=== PATIENT | male | born 1980 | race Caucasian/White ===

== ENCOUNTER 2020-10-27 22:49 | Emergency (ER) | payer MEDICAID, OTHER ==
[~2020-10-27] VITALS: Ht 180.3 cm; Wt 127.0 kg
[2020-10-27 22:50] VITALS: BP 149/89
--- NOTE | 2020-10-27 22:50 | NUR ---
TO ER BED C/O SI WITH PLAN TO STAB SELF. DENIES HI. REQUESTING VOLUNTARY ADM TO [facility]. PT AAOX4 NO ACUTE DISTRESS NOTED, RESP EVEN AND UNLABORED, PT CALM AND COOPERATIVE AT THIS TIME. PT SEEN AND EVAL UATED BY ER MD WITH ORDERS RECEIVED. WILL CARRY OUT ORDERS.
[2020-10-27 23:55] LABS: BASOPHILS # (AUTO) 0.1 /CMM (0.0-0.2); BASOPHILS % (AUTO) 0.7 % (0.0-2.0); EOSINOPHILS % (AUTO) 1.7 % (0.0-6.0); HEMATOCRIT 45 % (39-51); HEMOGLOBIN 15.2 g/dL (13.5-17.5); LYMPHOCYTES # (AUTO) 2.6 /CMM (0.8-4.8); LYMPHOCYTES % (AUTO) 20.2 % (20.0-44.0); MEAN CORPUSCULAR HGB CONC 34 g/dl (31.0-36.0); MEAN CORPUSCULAR VOLUME 88 fL (80-96); MONOCYTES # (AUTO) 0.8 /CMM (0.1-1.30); MONOCYTES % (AUTO) 6.3 % (2.0-12.0); NEUTROPHILS # (AUTO) 9.2 /CMM (1.8-8.9); NEUTROPHILS % (AUTO) 71.1 % (43.0-81.0); PLATELET COUNT (AUTO) 441 /CMM (150-450); RED BLOOD CELL COUNT(AUTO) 5.15 MIL/uL (4.5-6.0); WHITE BLOOD COUNT (AUTO) 12.9 K/uL (4.3-11.0)
[2020-10-27 23:58] LABS: ALANINE AMINOTRANSFERASE 29 U/L (12-78); ALBUMIN 4.6 g/dL (3.4-5.0); ALCOHOL, BLOOD < 3 mg/dL (0-0); ALKALINE PHOSPHATASE 119 U/L (46-116); ASPARTATE AMINOTRANSFERASE 36 U/L (15-37); BILIRUBIN,DIRECT 0.3 mg/dL (0.0-0.2); BILIRUBIN,TOTAL 1.2 mg/dL (0.2-1.0); CALCIUM, SERUM 9.7 mg/dL (8.5-10.1); CARBON DIOXIDE 30 mmol/L (21-32); CHLORIDE 101 mmol/L (98-107); CREATININE 1.2 mg/dL (0.6-1.3); GLUCOSE 121 mg/dL (74-106); POTASSIUM 3.9 mmol/L (3.5-5.1); SODIUM SERUM 139 mmol/L (136-145); TOTAL PROTEIN, SERUM 9.3 g/dL (6.4-8.2); UREA NITROGEN, BLOOD 17 mg/dL (7-18)
[2020-10-28 00:01] LABS: ACETAMINOPHEN < 2 ug/ml (10-30)
--- NOTE | 2020-10-28 00:41 | NUR ---
URINE SAMPLE COLLECTED AND SENT TO LAB.
[2020-10-28 01:11] LABS: BILIRUBIN,URINE SMALL (NEGATIVE); COLOR,URINE YELLOW (YELLOW); LEUKOCYTE ESTERASE ,URINE NEGATIVE (NEGATIVE); NITRITE, URINE NEGATIVE (NEGATIVE); PH,URINE 5.5 (5.0-8.0); PROTEIN,URINE TRACE mg/dl (NEGATIVE); UGLUCOSE NEGATIVE (NEGATIVE)
[2020-10-28 01:44] LABS: BACTERIA,URINE Few /HPF (None Seen); MUCUS,URINE Few /LPF (None Seen); RBC,URINE 0-2 /HPF (0-2); SQUAMOUS EPITHELIAL CELL,UR Few /HPF (None Seen); WBC,URINE 0-2 /HPF (0-3)
--- NOTE | 2020-10-28 02:19 | NUR ---
Lily montague in ED - 10/28/20 at 0434 by COLLIN CLINICAL AND FACESHEET FAXED TO [facility] FOR VOLUNTARY PSYCH ADMISSION.
--- NOTE | 2020-10-28 02:19 | NUR ---
CLINICAL AND FACESHEET FAXED TO [facility] INTAKE FOR VOLUNTARY PSYCH ADMISSION.
--- NOTE | 2020-10-28 04:35 | NUR ---
CLINICAL AND FACESHEET FAXED TO [facility] INTAKE FOR VOLUNTARY PSYCH ADMISSION.
--- NOTE | 2020-10-28 08:30 | NUR ---
Called PT NOT in WR
--- NOTE | 2020-10-28 09:30 | NUR ---
Called NOT in WR
--- NOTE | 2020-10-28 10:30 | NUR ---
Multiple calls NOT in WR- Eloped
== END 2020-10-28 12:57 | disposition left against medical advice (07) ==
LOC: ER 22:49
DX: R45.851 Suicidal ideations (principal); Z20.822 Contact with and (suspected) exposure to COVID-19
CPT/HCPCS: 36415; 80048; 80076; 80143; 80307; 80320; 81001; 85025; 87426; 99285; C9803; G0480

== ENCOUNTER 2020-12-05 06:13 | Emergency (ER) | payer OTHER ==
[~2020-12-05] VITALS: Ht 180.3 cm; Wt 106.6 kg
--- NOTE | 2020-12-05 06:15 | NUR ---
PRESENTED TO THE ER FOR C/I SI PLAN TO BURN HIMSELF. PT WAS PLCED IN BED 12 ER ON CLOSE SUPERVISION OF A SITTER. GOWNED UP AND KEPT BELONGINGS IN A SAFE PLACE. SI PRECAUTION IMPLEMENTED . NEEDS MET. WILL CONT TO MONITOR ,
[2020-12-05 06:56] LABS: BILIRUBIN,URINE SMALL (NEGATIVE); COLOR,URINE YELLOW (YELLOW); LEUKOCYTE ESTERASE ,URINE Negative (NEGATIVE); NITRITE, URINE Negative (NEGATIVE); PROTEIN,URINE 30 mg/dl (NEGATIVE); UGLUCOSE Negative (NEGATIVE); UROBILINOGEN,URINE 0.2 EU/dL (0.2)
[2020-12-05] MEDS ORDERED: SILVER SULFADIAZINE CREAM 25 GM TUBE ONE (07:03)
[2020-12-05] MEDS: SILVER SULFADIAZINE CREAM 25 GM TUBE TP ONE (07:08)
[2020-12-05 07:09] LABS: BASOPHILS # (AUTO) 0.1 K/uL (0.0-0.2); BASOPHILS % (AUTO) 1.3 % (0.0-2.0); EOSINOPHILS % (AUTO) 3.4 % (0.0-6.0); HEMATOCRIT 44 % (39-51); HEMOGLOBIN 14.4 g/dL (13.5-17.5); LYMPHOCYTES # (AUTO) 1.6 K/uL (0.8-4.8); LYMPHOCYTES % (AUTO) 19.4 % (20.0-44.0); MEAN CORPUSCULAR HGB CONC 33 g/dl (31.0-36.0); MEAN CORPUSCULAR VOLUME 88 fL (80-96); MONOCYTES # (AUTO) 0.8 K/uL (0.1-1.30); MONOCYTES % (AUTO) 9.4 % (2.0-12.0); NEUTROPHILS # (AUTO) 5.5 K/uL (1.8-8.9); NEUTROPHILS % (AUTO) 66.5 % (43.0-81.0); PLATELET COUNT (AUTO) 323 K/uL (150-450); RED BLOOD CELL COUNT(AUTO) 4.95 MIL/uL (4.5-6.0); WHITE BLOOD COUNT (AUTO) 8.2 K/uL (4.3-11.0)
[2020-12-05 07:26] LABS: CALCIUM, SERUM 9.4 mg/dL (8.5-10.1); CARBON DIOXIDE 28 mmol/L (21-32); CHLORIDE 103 mmol/L (98-107); CREATININE 1.3 mg/dL (0.6-1.3); GLUCOSE 104 mg/dL (74-106); POTASSIUM 4.2 mmol/L (3.5-5.1); SODIUM SERUM 143 mmol/L (136-145); UREA NITROGEN, BLOOD 10 mg/dL (7-18)
[2020-12-05 07:34] LABS: ALANINE AMINOTRANSFERASE 33 U/L (12-78); ALBUMIN 4.4 g/dL (3.4-5.0); ALKALINE PHOSPHATASE 100 U/L (46-116); ASPARTATE AMINOTRANSFERASE 32 U/L (15-37); BILIRUBIN,DIRECT 0.1 mg/dL (0.0-0.2); BILIRUBIN,TOTAL 0.5 mg/dL (0.2-1.0); TOTAL PROTEIN, SERUM 8.5 g/dL (6.4-8.2)
[2020-12-05 07:35] LABS: RBC,URINE 0-2 /HPF (0-2); SQUAMOUS EPITHELIAL CELL,UR Rare /HPF (None Seen); WBC,URINE 0-2 /HPF (0-3)
[2020-12-05 07:36] LABS: ACETAMINOPHEN < 10 ug/ml (10-30); ALCOHOL, BLOOD < 3 mg/dL (0-0)
[2020-12-05 07:36] LABS: BACTERIA,URINE Rare /HPF (None Seen); MUCUS,URINE Moderate /LPF (None Seen)
[2020-12-05] MEDS ORDERED: OLANZAPINE 5 MG TABLET PO ONE (08:00)
[2020-12-05] MEDS ORDERED: LORAZEPAM 1 MG TABLET PO ONE (08:00)
--- NOTE | 2020-12-05 08:00 | NUR ---
THE PATIENT ALERT, VSS. DENIES ANY DISTRESS AT THIS TIME. WILL CONTINUE TO MONITOR THE PATIENT.
[2020-12-05] MEDS ORDERED: LORAZEPAM 1 MG TABLET ONE (08:10)
[2020-12-05] MEDS ORDERED: OLANZAPINE 5 MG TABLET ONE (08:10)
[2020-12-05] MEDS: OLANZAPINE 10 MG VIAL IM ONE (08:30)
[2020-12-05] MEDS: LORAZEPAM INJ 2 MG/ML VIAL IV ONE (08:30)
[2020-12-05] MEDS: diphenhydrAMINE HCL 50 MG/ML VIAL IM ONE (08:30)
[2020-12-05] MEDS: OLANZAPINE 5 MG TABLET PO ONE (08:33)
[2020-12-05] MEDS: LORAZEPAM 1 MG TABLET PO ONE (08:33)
--- NOTE | 2020-12-05 08:33 | NUR ---
PER DR MACKEY ORDER ATIVAN 2 MG PO AND ZYPREXA 10 MG PO GIVEN TO THE PATIENT.
--- NOTE | 2020-12-05 11:21 | NUR ---
The patient alert, denies any distress. Will continue to monitor the patient.
--- NOTE | 2020-12-05 11:26 | NUR ---
Processing Talc And Borate Supervisor note: student services vice president consult requested for suciidal ideation and substance use. SW attempted to interview patient at his bedside in the emergency department. Patient presented drowsy and his speech was slurred. SW will follow up at a later time.
--- NOTE | 2020-12-05 15:00 | NUR ---
Filling Separator note: SW attempted to interview patient but patient presented drowsy with slurred speech. Per Dr. Worrell, patient is sedated. SW notified Dr. Worrell that homeless resources and waiver have been placed in the chart as needed. ED senior staff accountant to follow up at a later time. SS will remain available as needed.
--- NOTE | 2020-12-06 05:44 | NUR ---
PT IS REQUESTING VOLUNTARY PSYCH ADMISSION AT [facility]. FACE SHEET AND CLINICALS WERE FAXED TO [facility]
--- NOTE | 2020-12-06 08:57 | NUR ---
Pt awake,alert, responsive and cooperative -ate breakfast 100% On Bathroom privilages. Requesting to go to [place] of [place] as voluntary "I want to go there" Dr Worrell aware Calls made by EMT Isaac jean-baptiste present case in [place]. Kanika (González at bedside) For security/safety precaution
--- NOTE | 2020-12-06 09:46 | NUR ---
CALLED ART APPLICATION TECHNICIAN FOR EVAL. ETA 1 HOUR.
--- NOTE | 2020-12-06 11:27 | NUR ---
ART TITLE MANAGER AT BEDSIDE FOR PSYCH EVAL.
[2020-12-06] MEDS ORDERED: SILV20CR13 TP (12:09)
--- NOTE | 2020-12-06 12:28 | NUR ---
PT IS MEDICALLY AND PSYCH CLEARED. AAOX3 AND VERBALLY RESPONSIVE. DENIES SI/HI. AMBULATORY W/ STEADY GAIT. WAS PROVIDED W MEAL TRAY PRIOR TO DISCHARGE. D/C IN STABLE CONDITION.
[2020-12-06 12:31] VITALS: BP 125/60
== END 2020-12-06 12:32 | disposition home or self-care (01) ==
LOC: ER 06:13
DX: R45.851 Suicidal ideations (principal); T21.22XA Burn of second degree of abdominal wall, initial encounter; T31.0 Burns involving less than 10% of body surface; X76.XXXA Intentional self-harm by smoke, fire and flames, initial encounter; Y92.89 Other specified places as the place of occurrence of the external cause; Z59.0 Homelessness; F19.10 Other psychoactive substance abuse, uncomplicated; Z20.822 Contact with and (suspected) exposure to COVID-19
CPT/HCPCS: 36415; 80048; 80076; 80143; 80307; 80320; 81001; 85025; 87426; 99285; C9803; G0480

== ENCOUNTER 2021-01-04 00:14 | Emergency (ER) | payer OTHER ==
[~2021-01-04] VITALS: Ht 180.3 cm; Wt 95.3 kg
[~2021-01-04 00:14] MED LIST: SILV20CR13 TP
[2021-01-04 00:27] VITALS: BP 132/72
[2021-01-04] MEDS ORDERED: IBUP-1957 PO (00:35)
[2021-01-04] MEDS ORDERED: IBUPROFEN 400 MG TABLET ONE (00:38)
--- NOTE | 2021-01-04 00:44 | NUR ---
Patient discharged to home in stable condition. pt refused rx and Written after care instructions.
[2021-01-04] MEDS ORDERED: IBUPROFEN 400 MG TABLET PO ONE (01:00)
== END 2021-01-04 00:46 | disposition home or self-care (01) ==
LOC: ER 00:19
DX: G89.29 Other chronic pain (principal); M25.572 Pain in left ankle and joints of left foot; F10.10 Alcohol abuse, uncomplicated; Y90.9 Presence of alcohol in blood, level not specified; Z59.0 Homelessness; Z79.899 Other long term (current) drug therapy

== ENCOUNTER 2021-01-04 05:44 | Emergency (ER) | payer OTHER ==
[~2021-01-04] VITALS: Ht 180.3 cm; Wt 99.8 kg
[~2021-01-04 05:44] MED LIST changes: +IBUP-1957 PO
[2021-01-04 06:13] VITALS: BP 135/69
--- NOTE | 2021-01-04 06:26 | NUR ---
PT VERBALIZED HE IS NO LONGER SUICIDAL AND DOES NOT WANT TO GO PSYCH HOSPITAL ANY MORE. DENIED SI/HI AND LEFT THE HOSPITAL. MADE AWARE
[2021-01-04 06:32] LABS: BASOPHILS # (AUTO) 0.1 K/uL (0.0-0.2); EOSINOPHILS % (AUTO) 4.6 % (0.0-6.0); HEMATOCRIT 46 % (39-51); LYMPHOCYTES # (AUTO) 3.4 K/uL (0.8-4.8); LYMPHOCYTES % (AUTO) 32.3 % (20.0-44.0); MEAN CORPUSCULAR HGB CONC 34 g/dl (31.0-36.0); MEAN CORPUSCULAR VOLUME 89 fL (80-96); MONOCYTES # (AUTO) 1.1 K/uL (0.1-1.30); MONOCYTES % (AUTO) 10.1 % (2.0-12.0); NEUTROPHILS # (AUTO) 5.5 K/uL (1.8-8.9); PLATELET COUNT (AUTO) 315 K/uL (150-450); RED BLOOD CELL COUNT(AUTO) 5.24 MIL/uL (4.5-6.0); WHITE BLOOD COUNT (AUTO) 10.7 K/uL (4.3-11.0)
--- NOTE | 2021-01-04 06:35 | NUR ---
PT DENIES SI AND HI. REQUESTED TO LEAVE. ER MD AWARE. PT LEFT ED. VSS. AMBULATED WITH STEADY GAIT.
[2021-01-04 06:36] LABS: BILIRUBIN,URINE SMALL (NEGATIVE); COLOR,URINE DARK YELLOW (YELLOW); LEUKOCYTE ESTERASE ,URINE NEGATIVE (NEGATIVE); NITRITE, URINE NEGATIVE (NEGATIVE); PH,URINE 5.5 (5.0-8.0); PROTEIN,URINE 30 mg/dl (NEGATIVE); UGLUCOSE NEGATIVE (NEGATIVE)
[2021-01-04 06:52] LABS: ALANINE AMINOTRANSFERASE 54 U/L (12-78); ALBUMIN 4.4 g/dL (3.4-5.0); ALKALINE PHOSPHATASE 127 U/L (46-116); ASPARTATE AMINOTRANSFERASE 91 U/L (15-37); BILIRUBIN,DIRECT 0.2 mg/dL (0.0-0.2); BILIRUBIN,TOTAL 0.5 mg/dL (0.2-1.0); CALCIUM, SERUM 9.3 mg/dL (8.5-10.1); CARBON DIOXIDE 25 mmol/L (21-32); CHLORIDE 100 mmol/L (98-107); CREATININE 1.3 mg/dL (0.6-1.3); GLUCOSE 115 mg/dL (74-106); POTASSIUM 3.8 mmol/L (3.5-5.1); SODIUM SERUM 138 mmol/L (136-145); TOTAL PROTEIN, SERUM 8.7 g/dL (6.4-8.2); UREA NITROGEN, BLOOD 20 mg/dL (7-18)
[2021-01-04 06:55] LABS: ACETAMINOPHEN < 10 ug/ml (10-30)
[2021-01-04 06:56] LABS: ALCOHOL, BLOOD < 3 mg/dL (0-0)
[2021-01-04 08:14] LABS: BACTERIA,URINE Few /HPF (None Seen); CALCIUM OXALATE CRYSTALS,UR Few /HPF (None Seen); RBC,URINE 0-2 /HPF (0-2); WBC,URINE 0-3 /HPF (0-3)
[2021-01-04 08:15] LABS: SQUAMOUS EPITHELIAL CELL,UR Few /HPF (None Seen)
[2021-01-04 08:16] LABS: URINE AMORPHOUS URATE Moderate /HPF (None Seen)
== END 2021-01-04 06:37 | disposition home or self-care (01) ==
LOC: ER 05:48
DX: R45.851 Suicidal ideations (principal); R44.0 Auditory hallucinations; F19.10 Other psychoactive substance abuse, uncomplicated; F15.10 Other stimulant abuse, uncomplicated; F12.10 Cannabis abuse, uncomplicated; Z59.0 Homelessness; R74.01 Elevation of levels of liver transaminase levels; Z20.822 Contact with and (suspected) exposure to COVID-19
CPT/HCPCS: 36415; 80048; 80076; 80143; 80307; 80320; 81001; 85025; 87426; 99285; C9803; G0480

== ENCOUNTER 2021-01-06 16:08 | Emergency (ER) | payer OTHER ==
[~2021-01-06] VITALS: Ht 180.3 cm; Wt 106.6 kg
--- NOTE | 2021-01-06 16:38 | NUR ---
Xray in progress at BS.
[2021-01-06] MEDS ORDERED: IBUPROFEN 600 MG TABLET ONE (16:41)
[2021-01-06] MEDS ORDERED: IBUPROFEN 600 MG TABLET PO ONE (17:00)
[2021-01-06] MEDS ORDERED: IBUP-1957 PO (17:47)
--- NOTE | 2021-01-06 18:36 | NUR ---
Patient removed the short posterior splint. KAILYN Abreu made aware.
[2021-01-06 18:37] VITALS: BP 148/88
--- NOTE | 2021-01-06 18:38 | NUR ---
Patient discharged to home in stable condition. Written and verbal after care instructions given. Patient verbalizes understanding of instruction.
== END 2021-01-06 18:38 | disposition home or self-care (01) ==
LOC: ER 16:16
DX: S82.892A Other fracture of left lower leg, initial encounter for closed fracture (principal); F17.200 Nicotine dependence, unspecified, uncomplicated; Z59.0 Homelessness; W19.XXXA Unspecified fall, initial encounter; Y93.89 Activity, other specified; Y92.89 Other specified places as the place of occurrence of the external cause; Y99.8 Other external cause status
CPT/HCPCS: 73610-TC

== ENCOUNTER 2021-02-28 06:45 | Emergency (ER) | payer OTHER ==
[~2021-02-28] VITALS: Ht 180.3 cm; Wt 107.5 kg
--- NOTE | 2021-02-28 06:45 | NUR ---
called for triage not in waiting room.
--- NOTE | 2021-02-28 06:58 | NUR ---
called for triage, not in waiting room.
--- NOTE | 2021-02-28 07:37 | NUR ---
urine collected and sent to lab.
--- NOTE | 2021-02-28 07:38 | NUR ---
patient came in to the er +SI "I want to run through traffic". On room air, security at bedside for wanding. Sitter at bedside for constant monitoring. Kept comfortable, will continue to monitor accordingly.
[2021-02-28] MEDS ORDERED: LORAZEPAM 1 MG TABLET ONE (07:55)
[2021-02-28] MEDS ORDERED: OLANZAPINE 5 MG TABLET ONE (07:56)
[2021-02-28] MEDS ORDERED: LORAZEPAM 1 MG TABLET PO ONE (08:00)
[2021-02-28] MEDS ORDERED: OLANZAPINE 5 MG TABLET PO ONE (08:00)
[2021-02-28 08:22] LABS: BILIRUBIN,URINE MODERATE (NEGATIVE); COLOR,URINE DARK YELLOW (YELLOW); LEUKOCYTE ESTERASE ,URINE Negative (NEGATIVE); NITRITE, URINE Negative (NEGATIVE); PH,URINE 5.5 (5.0-8.0); PROTEIN,URINE 30 mg/dl (NEGATIVE); UGLUCOSE Negative (NEGATIVE)
[2021-02-28 08:46] LABS: BACTERIA,URINE Few /HPF (None Seen); MUCUS,URINE Moderate /LPF (None Seen); RBC,URINE NONE SEEN /HPF (0-2); SQUAMOUS EPITHELIAL CELL,UR Rare /HPF (None Seen); WBC,URINE 0-3 /HPF (0-3)
[2021-02-28 08:56] LABS: BASOPHILS % (AUTO) 0.4 % (0.0-2.0); HEMATOCRIT 43 % (39-51); HEMOGLOBIN 14.1 g/dL (13.5-17.5); LYMPHOCYTES # (AUTO) 1.3 K/uL (0.8-4.8); LYMPHOCYTES % (AUTO) 12.7 % (20.0-44.0); MEAN CORPUSCULAR HGB CONC 33 g/dl (31.0-36.0); MEAN CORPUSCULAR VOLUME 90 fL (80-96); MONOCYTES # (AUTO) 0.6 K/uL (0.1-1.30); MONOCYTES % (AUTO) 6.5 % (2.0-12.0); NEUTROPHILS # (AUTO) 7.8 K/uL (1.8-8.9); NEUTROPHILS % (AUTO) 78.4 % (43.0-81.0); PLATELET COUNT (AUTO) 301 K/uL (150-450); RED BLOOD CELL COUNT(AUTO) 4.77 MIL/uL (4.5-6.0)
[2021-02-28 09:13] LABS: CALCIUM, SERUM 9.2 mg/dL (8.5-10.1); CARBON DIOXIDE 19 mmol/L (21-32); CHLORIDE 101 mmol/L (98-107); CREATININE 1.6 mg/dL (0.6-1.3); GLUCOSE 121 mg/dL (74-106); POTASSIUM 3.1 mmol/L (3.5-5.1); SODIUM SERUM 142 mmol/L (136-145); UREA NITROGEN, BLOOD 18 mg/dL (7-18)
[2021-02-28 09:27] LABS: ALANINE AMINOTRANSFERASE 88 U/L (12-78); ALBUMIN 4.1 g/dL (3.4-5.0); ALKALINE PHOSPHATASE 86 U/L (46-116); ASPARTATE AMINOTRANSFERASE 184 U/L (15-37); BILIRUBIN,DIRECT 0.2 mg/dL (0.0-0.2); BILIRUBIN,TOTAL 0.6 mg/dL (0.2-1.0); TOTAL PROTEIN, SERUM 7.9 g/dL (6.4-8.2)
[2021-02-28 09:28] LABS: ACETAMINOPHEN 0 ug/ml (10-30); ALCOHOL, BLOOD < 3 mg/dL (0-0)
[2021-02-28] MEDS ORDERED: POTASSIUM CHLORIDE 20 MEQ TAB.PRT.SR PO ONE ×2 (09:30→12:56)
--- NOTE | 2021-02-28 12:25 | NUR ---
SS Consult: SS consult requested for SI with plan to "run into traffic". EFRA met with pt. bedside. Pt. is sleeping and not rousable toverbal cues. Pt. was give Zyprexa and Ativan earlier today per EMR. Per Tox reprt pt. used Amphetamine and used Cannabinoids. Pt. appears disheveled and mal odorouse, possible homelessness. SW placed homeless resources and waiver in the pt.'s chart to be completed at later time. Plan: EFRA faxed clinicals to [facility] [[address] [place] [address] FAX:[phone]] for inpatient psychiatric treatment. Patient signed homeless waiver & it was placed in the pt.'s chart. EFRA provided pt. with homeless resources and he accepted them:
--- NOTE | 2021-02-28 12:54 | NUR ---
RECEIVED A CALL FROM CLAUDIA KRAUS. [facility] UNDER THE CARE OF DR RAMESH. PLEASE TRANSPORT THE PATIENT AT 1330. PLEASE GIVE REPORT TO DISPATCHER RADIO AT [phone].
--- NOTE | 2021-02-28 13:31 | NUR ---
REPORT GIVEN TO NURSE PATSY FROM [facility].
--- NOTE | 2021-02-28 14:54 | NUR ---
CALLED [facility] FOR TRANSPORT TO [facility]. ETA 1 HOUR.
[2021-02-28 16:50] VITALS: BP 126/76
--- NOTE | 2021-02-28 16:50 | NUR ---
THE PATIENT IS TRANSFERED TO [facility] IN STABLE CONDITON VIA ARRANGED TRANSPO.
== END 2021-02-28 16:51 ==
LOC: ER 06:54
DX: R45.851 Suicidal ideations (principal); F15.10 Other stimulant abuse, uncomplicated; E87.6 Hypokalemia; Z20.822 Contact with and (suspected) exposure to COVID-19; E66.9 Obesity, unspecified; Z68.33 Body mass index [BMI] 33.0-33.9, adult; Z59.00 Homelessness unspecified
CPT/HCPCS: 36415; 80048; 80076; 80143; 80307; 80320; 81001; 85025; 87426; 99285; A6403; C9803; G0480

== ENCOUNTER 2021-03-25 05:41 | Emergency (ER) | payer OTHER ==
[~2021-03-25] VITALS: Ht 180.3 cm; Wt 106.6 kg
--- NOTE | 2021-03-25 06:00 | NUR ---
DAYNASEGATO C/O SI WITH PLAN TO CUT WRIST. -HI REQUESTING VOL. ADMISSION TO [facility]. PT AMBULATORY WITH NON LABORED BREATHING.
[2021-03-25 06:39] LABS: BASOPHILS # (AUTO) 0.1 K/uL (0.0-0.2); EOSINOPHILS % (AUTO) 3.3 % (0.0-6.0); HEMATOCRIT 44 % (39-51); HEMOGLOBIN 14.8 g/dL (13.5-17.5); LYMPHOCYTES # (AUTO) 3.2 K/uL (0.8-4.8); LYMPHOCYTES % (AUTO) 27.1 % (20.0-44.0); MEAN CORPUSCULAR HGB CONC 34 g/dl (31.0-36.0); MEAN CORPUSCULAR VOLUME 90 fL (80-96); MONOCYTES # (AUTO) 1.1 K/uL (0.1-1.30); MONOCYTES % (AUTO) 9.3 % (2.0-12.0); NEUTROPHILS % (AUTO) 59.3 % (43.0-81.0); PLATELET COUNT (AUTO) 365 K/uL (150-450); WHITE BLOOD COUNT (AUTO) 11.7 K/uL (4.3-11.0)
[2021-03-25 06:55] LABS: ALCOHOL, BLOOD < 3 mg/dL (0-0); ALKALINE PHOSPHATASE 143 U/L (46-116); ASPARTATE AMINOTRANSFERASE 33 U/L (15-37); BILIRUBIN,DIRECT 0.1 mg/dL (0.0-0.2); BILIRUBIN,TOTAL 0.3 mg/dL (0.2-1.0); CALCIUM, SERUM 8.6 mg/dL (8.5-10.1); CARBON DIOXIDE 31 mmol/L (21-32); CHLORIDE 101 mmol/L (98-107); GLUCOSE 119 mg/dL (74-106); POTASSIUM 3.5 mmol/L (3.5-5.1); SODIUM SERUM 140 mmol/L (136-145); TOTAL PROTEIN, SERUM 7.8 g/dL (6.4-8.2); UREA NITROGEN, BLOOD 10 mg/dL (7-18)
[2021-03-25 07:16] LABS: ACETAMINOPHEN < 2 ug/ml (10-30)
[2021-03-25 07:24] LABS: BILIRUBIN,URINE NEGATIVE (NEGATIVE); COLOR,URINE YELLOW (YELLOW); LEUKOCYTE ESTERASE ,URINE NEGATIVE (NEGATIVE); NITRITE, URINE NEGATIVE (NEGATIVE); PROTEIN,URINE NEGATIVE (NEGATIVE); UGLUCOSE NEGATIVE (NEGATIVE)
[2021-03-25 07:29] LABS: ALANINE AMINOTRANSFERASE 38 U/L (12-78)
[2021-03-25 07:49] LABS: CALCIUM OXALATE CRYSTALS,UR Many /HPF (None Seen); RBC,URINE 0-2 /HPF (0-2); SQUAMOUS EPITHELIAL CELL,UR None Seen /HPF (None Seen); WBC,URINE 0-2 /HPF (0-3)
[2021-03-25 07:50] LABS: BACTERIA,URINE Rare /HPF (None Seen)
--- NOTE | 2021-03-25 11:24 | NUR ---
EFRA faxed clinical paperwork to [facility].
--- NOTE | 2021-03-25 11:44 | NUR ---
"SS Consult: SS consults for SI. Pt. Is a 40-year-old male. Pt. demonstrates adequate insight to the reason for hospitalization. Per pt., he/she was brought to hospital by self-due to suicidal thoughts. Pt. was oriented x2. During interview, pt. was capable of following directions but did not make appropriate eye-contact. Pt. seemed uncomfortable. SW explored pt.s Hx of mental health and substance abuse. Per pt., he has no Hx of mental health, substance abuse denied AH/VH, paranoia or delusions. Pt. have thoughts of SI. Per pt., the methods he used to hurt himself is cutting. Pt. did not want to answer further questions regarding SI. EFRA explored pt.s living situation. Per pt., he has been homeless for 5 years [no current address, living in the streets]. Per pt., he reported that the hospital is his home. Per pt., he reports having no support or family. SW explored pt.s financial status. Per pt., he/she is currently not working or have financial support. Pt. reported that he wants a referral to [facility]. SW faxed clinical paperwork to [facility]. Plan: SW provided available resources and pt. accepted. EFRA made a referral to [facility]. Resources Provided: Year-round shelters: [place] [address] [place], [place] [id number] ; [place] [facility] [place] [address] [place] [address]; [place] [facility] [address] [place] [address] Winter Shelters: Torin Doan Provider: [facility] [place] Address: [address] [facility] [facility] [place], [address] # of Beds: 47 Population Served: [facility] 6 | [facility] Jayleen La [place] Provider: [facility] Address: [address], # of Beds: 66 Population Served: [facility] [place] Provider: First to Serve Address: [address] [facility], [address] # of Beds: 56 Population Served: [place] Provider: /[facility] Address: [address] [facility], [address] # of Beds: 49 Population Served: [place] SPA 8 | [place] Provider: First to Serve Address: [address], [address] # of Beds: 37 Population Served: Co[facility] Hygiene: [facility] [facility]: [address] [place] ; [place] [facility] [address] [facility] [place] ; [facility] [address] [place] . Food Resources: [place] [facility] at [facility]- [address] [facility]; Meet Each Need with Dignity ([facility]) [address] [facility] Center[facility]ina [place]; [facility] Food [facility]ry [address] [facility]; [facility] [address] [facility]. Mental Health resources provided: [facility] [address] [place], [place] [phone] ; [facility] [address] [facility] [address], [place], [place] [phone] ; [place] Jad [facility] [address], [place] [phone] ; [place] [facility] [address] [place], [place] [phone] Healthcare Clinics: [facility] [address] [facility], [address] [place]. [place] ; [facility] [address] [place] [address]; [facility] [address] [facility]. [place] [phone] Counseling--Outpatient [facility] [address], [address] [place], [place] [address] (Specializes in in-depth psychotherapy for emotional distress: anxiety, depression, interpersonal conflicts, life transitions, childhood abuse) [facility] [address] [place] [address] (Assist with solving problem marital difficulties, separation & divorce, aging parents, & grief, chronic & terminal illness) [facility] [address] [place] [address] (Deal with loss & grief, anxiety, marital difficulties) Homebound/Mental Health Services [address] [facility] [place] [address] (Provide in-home mental services to people who are incapable of leaving their homes) Organization for Needs of the Elderly Senior Service/Resource Center [address] L[place], [place] [phone] [facility] [address] [place], [place] [address] PSYCHIATRIC OUTPATIENT SERVICES [facility] Partial Hospitalization and Intensive Outpatient Program (Managed Care and [place] Only)[address] [facility] [phone] [facility] Partial Hospitalization and Outpatient [id number] [facility]. [address] [place], [place] [phone] Critical access hospital Mental Health [place] [id number] Cristina [facility] [address] [place], [place] [phone] [facility] Partial Hospitalization and Outpatient Ibkawkw05218 [place], [phone] Substance Abuse resources provided included: [facility] Substance Abuse Self-Helpline ([facility]) ; CRI -HELP [address] [address] [facility]. [place] [address] ; [facility] [address] [facility] [address] ; [facility] Rehabilitation Program [address] Sun[address]water [facility] [address] ; [facility] [address] [facility] [address] ; [facility] [address] Fritz [facility] [address] ; [facility] [address] [facility] [place] [phone] ; [facility] Substance Abuse Helpline([facility] ; [facility] ; [facility] [place]; [facility] [place]; Cri-Help [place]; I-ADARP Inter [place] [facility] Mickey Fritz; [facility] [place]; [facility] [place]; [facility]; [facility], [facility]. [place]; Alcoholics Anonymous -SFV; Ying ; Marijuana Anonymous -SFV; Narcotics Anonymous www.na.org;"
--- NOTE | 2021-03-25 12:51 | NUR ---
RECEIVED A CALL FROM . PT ACCEPTED TO [facility]. ACCEPTING IS DR. NEWMAN. PLEASE CALL REPORT AFTER 1300 to [phone].
--- NOTE | 2021-03-25 12:54 | NUR ---
CALLED [facility] FOR TRANSPORT TO [facility]. ETA 75-90 MINUTES.
[2021-03-25 14:00] VITALS: BP 122/75
--- NOTE | 2021-03-25 14:23 | NUR ---
report given to radha fuentes frederick.
--- NOTE | 2021-03-25 16:00 | NUR ---
patient picked up by private ambulance going to [facility] in no distress.
== END 2021-03-25 18:53 ==
LOC: ER 05:44
DX: R45.851 Suicidal ideations (principal); F15.10 Other stimulant abuse, uncomplicated; Z20.822 Contact with and (suspected) exposure to COVID-19; Z59.02 Unsheltered homelessness
CPT/HCPCS: 36415; 80048; 80076; 80143; 80307; 80320; 81001; 85025; 87426; 99285; C9803; G0480

== ENCOUNTER 2021-04-14 00:07 | Emergency (ER) | payer OTHER ==
[~2021-04-14] VITALS: Ht 180.3 cm; Wt 106.6 kg
--- NOTE | 2021-04-14 01:00 | NUR ---
CALLED PT TO TRIAGE. PT -SI. ASKED PT IF WANTS TO BE SEEN BY MD, PT STATED NOT RIGHT NOW.
--- NOTE | 2021-04-14 03:00 | NUR ---
URINE COLLECTED SENT TO LAB
[2021-04-14 03:27] LABS: BASOPHILS # (AUTO) 0.1 K/uL (0.0-0.2); BASOPHILS % (AUTO) 0.9 % (0.0-2.0); EOSINOPHILS % (AUTO) 2.8 % (0.0-6.0); HEMATOCRIT 45 % (39-51); LYMPHOCYTES # (AUTO) 2.2 K/uL (0.8-4.8); LYMPHOCYTES % (AUTO) 18.6 % (20.0-44.0); MEAN CORPUSCULAR HGB CONC 33 g/dl (31.0-36.0); MEAN CORPUSCULAR VOLUME 90 fL (80-96); MONOCYTES % (AUTO) 8.4 % (2.0-12.0); NEUTROPHILS # (AUTO) 8.2 K/uL (1.8-8.9); NEUTROPHILS % (AUTO) 69.3 % (43.0-81.0); PLATELET COUNT (AUTO) 344 K/uL (150-450); RED BLOOD CELL COUNT(AUTO) 4.99 MIL/uL (4.5-6.0); WHITE BLOOD COUNT (AUTO) 11.8 K/uL (4.3-11.0)
[2021-04-14 03:37] LABS: CALCIUM, SERUM 9.4 mg/dL (8.5-10.1); CARBON DIOXIDE 30 mmol/L (21-32); CHLORIDE 100 mmol/L (98-107); CREATININE 1.4 mg/dL (0.6-1.3); GLUCOSE 116 mg/dL (74-106); POTASSIUM 4.2 mmol/L (3.5-5.1); SODIUM SERUM 142 mmol/L (136-145); UREA NITROGEN, BLOOD 21 mg/dL (7-18)
[2021-04-14 03:42] LABS: ALANINE AMINOTRANSFERASE 35 U/L (12-78); ALBUMIN 4.8 g/dL (3.4-5.0); ALCOHOL, BLOOD < 3 mg/dL (0-0); ALKALINE PHOSPHATASE 91 U/L (46-116); ASPARTATE AMINOTRANSFERASE 24 U/L (15-37); BILIRUBIN,DIRECT 0.1 mg/dL (0.0-0.2); BILIRUBIN,TOTAL 0.5 mg/dL (0.2-1.0); TOTAL PROTEIN, SERUM 8.9 g/dL (6.4-8.2)
[2021-04-14 03:43] LABS: ACETAMINOPHEN 0 ug/ml (10-30)
[2021-04-14 05:08] LABS: BILIRUBIN,URINE NEGATIVE (NEGATIVE); COLOR,URINE YELLOW (YELLOW); LEUKOCYTE ESTERASE ,URINE NEGATIVE (NEGATIVE); NITRITE, URINE NEGATIVE (NEGATIVE); PH,URINE 5.5 (5.0-8.0); PROTEIN,URINE NEGATIVE (NEGATIVE); UGLUCOSE NEGATIVE (NEGATIVE); UROBILINOGEN,URINE 0.2 EU/dL (0.2)
--- NOTE | 2021-04-14 06:25 | NUR ---
CLINICAL SENT TO [facility] INTAKE
--- NOTE | 2021-04-14 07:55 | NUR ---
THE PATIENT IS RECEIVED IN ER BED #13. ALERT AND ORIENTED X3. DENIES PAIN. IN ROOM AIR AND DENIES SOB. RESPIRATION REGULAR AND UNLABORED. WILL CONTINUE TO MONITOR THE PATIENT.
--- NOTE | 2021-04-14 08:15 | NUR ---
THE PATIENT REFUSES BREAKFAST AND WANTS TO SLEEP. THE PATIENT`S WISHES ARE RESPECTED.
--- NOTE | 2021-04-14 12:10 | NUR ---
THE PATIENT IS SERVED WITH LUNCH. TOLERATES PROVIDED FOOD WELL.
--- NOTE | 2021-04-14 14:17 | NUR ---
CALLED [facility] FOR TRANSPORT TO COUNTS INCLUDE 234 BEDS AT THE [facility]. ETA 60-75 MINUTES.
[2021-04-14 16:30] VITALS: BP 126/73
--- NOTE | 2021-04-14 16:30 | NUR ---
REPORT GIVEN TO EMS FOR PT TRANSFER TO [facility].
== END 2021-04-14 16:31 ==
LOC: ER 00:07
DX: R45.851 Suicidal ideations (principal); F20.9 Schizophrenia, unspecified; F31.9 Bipolar disorder, unspecified; Z20.822 Contact with and (suspected) exposure to COVID-19; Z59.02 Unsheltered homelessness
CPT/HCPCS: 36415; 80048; 80076; 80143; 80307; 80320; 81003; 85025; 87426; 99285; C9803; G0480

== ENCOUNTER 2021-05-04 01:47 | Emergency (ER) | payer OTHER ==
[~2021-05-04] VITALS: Ht 182.9 cm; Wt 106.6 kg
[2021-05-04 03:49] LABS: BASOPHILS # (AUTO) 0.1 K/uL (0.0-0.2); BASOPHILS % (AUTO) 0.8 % (0.0-2.0); EOSINOPHILS % (AUTO) 2.6 % (0.0-6.0); HEMATOCRIT 44 % (39-51); HEMOGLOBIN 14.9 g/dL (13.5-17.5); LYMPHOCYTES # (AUTO) 2.2 K/uL (0.8-4.8); LYMPHOCYTES % (AUTO) 22.5 % (20.0-44.0); MEAN CORPUSCULAR HGB CONC 34 g/dl (31.0-36.0); MEAN CORPUSCULAR VOLUME 90 fL (80-96); MONOCYTES # (AUTO) 0.9 K/uL (0.1-1.30); MONOCYTES % (AUTO) 9.1 % (2.0-12.0); NEUTROPHILS # (AUTO) 6.4 K/uL (1.8-8.9); PLATELET COUNT (AUTO) 342 K/uL (150-450); RED BLOOD CELL COUNT(AUTO) 4.95 MIL/uL (4.5-6.0); WHITE BLOOD COUNT (AUTO) 9.9 K/uL (4.3-11.0)
[2021-05-04 03:54] LABS: ALANINE AMINOTRANSFERASE 42 U/L (12-78); ALBUMIN 4.7 g/dL (3.4-5.0); ALCOHOL, BLOOD < 3 mg/dL (0-0); ALKALINE PHOSPHATASE 93 U/L (46-116); ASPARTATE AMINOTRANSFERASE 88 U/L (15-37); BILIRUBIN,DIRECT 0.2 mg/dL (0.0-0.2); BILIRUBIN,TOTAL 0.8 mg/dL (0.2-1.0); CALCIUM, SERUM 9.1 mg/dL (8.5-10.1); CARBON DIOXIDE 26 mmol/L (21-32); CHLORIDE 101 mmol/L (98-107); CREATININE 1.3 mg/dL (0.6-1.3); GLUCOSE 120 mg/dL (74-106); POTASSIUM 3.7 mmol/L (3.5-5.1); SODIUM SERUM 138 mmol/L (136-145); TOTAL PROTEIN, SERUM 8.7 g/dL (6.4-8.2); UREA NITROGEN, BLOOD 22 mg/dL (7-18)
[2021-05-04 04:00] LABS: BILIRUBIN,URINE SMALL (NEGATIVE); COLOR,URINE YELLOW (YELLOW); LEUKOCYTE ESTERASE ,URINE NEGATIVE (NEGATIVE); NITRITE, URINE NEGATIVE (NEGATIVE); PH,URINE 5.5 (5.0-8.0); PROTEIN,URINE TRACE mg/dl (NEGATIVE); UGLUCOSE NEGATIVE (NEGATIVE); UROBILINOGEN,URINE 0.2 EU/dL (0.2)
[2021-05-04 04:01] LABS: ACETAMINOPHEN 0 ug/ml (10-30)
--- NOTE | 2021-05-04 05:59 | NUR ---
FACESHEET AND CLINICALS FAXED TO [facility].
--- NOTE | 2021-05-04 07:10 | NUR ---
ASSESSED PT ON BED AWAKE AND ALERT, NOT IN RESPIRATORY DISTRESS, V/S STABLE, KEPT RESTED AND COMFORTABLE. WILL CONTINUE TO MONITOR. AWAITING [facility] INTAKE FOR UPDATE.
--- NOTE | 2021-05-04 16:05 | NUR ---
[facility] under Dr. Hermosillo/Dr. linares report given to Kiarra KRISHNAN (warehouse foreman).
--- NOTE | 2021-05-04 16:08 | NUR ---
CALLED [facility] ETA [phone]
--- NOTE | 2021-05-04 17:40 | NUR ---
JANINE PITTMAN TO NURSE JOHNSTON FROM [facility]
--- NOTE | 2021-05-04 17:40 | NUR ---
REPORT TOYA TO [facility] STAFF
--- NOTE | 2021-05-04 18:06 | NUR ---
pt refused to be transfered to [facility].
--- NOTE | 2021-05-04 18:40 | NUR ---
MON[facility] spoke to [facility] 1 hr.
--- NOTE | 2021-05-04 19:50 | NUR ---
[facility] AT BEDSIDE FOR TRANSPORT TO [facility]
--- NOTE | 2021-05-04 20:15 | NUR ---
PT REFUSED TO BE TRANSPORTED TO [facility].
--- NOTE | 2021-05-04 21:30 | NUR ---
Patient is resting comfortably in bed with eyes closed. Easily aroused. VSS
[2021-05-04] MEDS ORDERED: HALOPERIDOL LACTATE INJ 5 MG/ML VIAL ONE (21:49)
[2021-05-04] MEDS ORDERED: LORAZEPAM INJ 2 MG/ML VIAL ONE (21:49)
[2021-05-04] MEDS ORDERED: diphenhydrAMINE HCL 50 MG/ML VIAL ONE (21:49)
[2021-05-04] MEDS ORDERED: LORAZEPAM INJ 2 MG/ML VIAL IM ONE (22:00)
[2021-05-04] MEDS ORDERED: HALOPERIDOL LACTATE INJ 5 MG/ML VIAL IM ONE (22:00)
[2021-05-04] MEDS ORDERED: diphenhydrAMINE HCL 50 MG/ML VIAL IM ONE (22:00)
--- NOTE | 2021-05-05 01:40 | NUR ---
PT SLEEPING, ATTACHED TO MONITOR AND POX.
--- NOTE | 2021-05-05 04:42 | NUR ---
Patient is resting comfortably in bed with eyes closed. Easily aroused. VSS
--- NOTE | 2021-05-05 08:08 | NUR ---
THE PATIENT IS RECEIVED IN ER BED #15. SLEEPING, EASILY RESPONSIVE TO VERBAL STIMULI. RESPIRATION REGULAR AND UNLABORED. WILL CONTINUE TO MONITOR THE PATIENT.
--- NOTE | 2021-05-05 08:10 | NUR ---
PT IS VERY AGGRESSIVE TOWARDS STAFF. AWARE.
[2021-05-05] MEDS ORDERED: diphenhydrAMINE HCL 50 MG/ML VIAL ONE (08:54)
[2021-05-05] MEDS ORDERED: HALOPERIDOL LACTATE INJ 5 MG/ML VIAL ONE (08:55)
[2021-05-05] MEDS ORDERED: LORAZEPAM INJ 2 MG/ML VIAL ONE (08:55)
[2021-05-05] MEDS ORDERED: HALOPERIDOL LACTATE INJ 5 MG/ML VIAL IM ONE (09:00)
[2021-05-05] MEDS ORDERED: diphenhydrAMINE HCL 50 MG/ML VIAL IM ONE (09:00)
[2021-05-05] MEDS ORDERED: LORAZEPAM INJ 2 MG/ML VIAL IM ONE (09:00)
--- NOTE | 2021-05-05 11:00 | NUR ---
PINKY (PSYCH CLINICIAN) AT THE BEDSIDE
--- NOTE | 2021-05-05 21:15 | NUR ---
LARON - CRISIS TEAM AT BEDSIDE FOR EVAL.
--- NOTE | 2021-05-06 06:04 | NUR ---
PT AWAKE IN BED, PROVIDED WITH WATER.
--- NOTE | 2021-05-06 10:13 | NUR ---
SS Consult: Pt. Is a 40-year-old male. Pt. demonstrates adequate insight to the reason for hospitalization. Pt. was oriented x2 and cooperative. During interview, pt. was capable of following directions, and appeared unkempt. Evidenced by: bad hygiene. Pt.'s speech was at a low rate. EFRA explored pt.'s Hx of mental health and substance abuse. Pt. denies Hx of mental health, substance abuse, or homicidal. Pt. denies auditory hallucinations, visual hallucinations, paranoia, or delusions. Pt. reported having suicidal ideation. Per pt., he has tried cutting himself. SW explored pt.'s living situation. Per pt., he has been homeless for 10-11 years. Pt. expressed that he wants to go to a psych facility. EFRA will fax clinical reports to [place].
[2021-05-06] MEDS ORDERED: OLANZAPINE 5 MG TABLET PO ONE (11:00)
[2021-05-06] MEDS ORDERED: OLANZAPINE 5 MG TABLET ONE (11:02)
--- NOTE | 2021-05-06 11:04 | NUR ---
EFRA follow-up with [facility], and pt. does not meet requirements for admission. EFRA fax clinical reports to [facility] and beds are currently full. EFRA will call crisis in an hour to come evaluate pt. EFRA and director, Chinyere, notify to medicate pt.
--- NOTE | 2021-05-06 12:07 | NUR ---
EFRA contacted Art from crisis. Art will come see pt. Once pt. is no longer on hold, EFRA will fax clinical to [facility].
--- NOTE | 2021-05-06 13:38 | NUR ---
Art from crisis came to break hold. SW fax clinical reports to [facility] [fax: [phone]], will await response from [facility].
--- NOTE | 2021-05-06 14:44 | NUR ---
CALLED [facility] INTAKE. PER SACHI AWAITING RESPONSE FROM [facility].
--- NOTE | 2021-05-06 15:43 | NUR ---
[facility] is waiting for recent covid test and med note.
--- NOTE | 2021-05-06 15:53 | NUR ---
COVID SWAB DONE AND SENT TO LAB
--- NOTE | 2021-05-06 20:33 | NUR ---
CALLED INTAKE SPOKE WITH SAMEER UNDER REVIEW AND WILL CALL US BACK
--- NOTE | 2021-05-06 21:01 | NUR ---
ACCEPTED AT [facility] BY DR NEWMAN
--- NOTE | 2021-05-06 21:37 | NUR ---
PER [facility] PLEASE SENT THE PT TOMORROW
--- NOTE | 2021-05-07 05:35 | NUR ---
[facility] ETA: [phone]
--- NOTE | 2021-05-07 07:07 | NUR ---
Lily montague in [facility] - 05/07/21 at 0708 by LESIA CALLED FOR REPORT NOTED TO CALL BACK AFTER CHANGE OF SHIFT REPORT
--- NOTE | 2021-05-07 07:08 | NUR ---
CALLED FOR REPORT NOTED TO CALL BACK AFTER CHANGE OF SHIFT REPORT
[2021-05-07 07:45] VITALS: BP 127/67
--- NOTE | 2021-05-07 08:05 | NUR ---
PICKED UP BY [facility] IN STABLE CONDITION
== END 2021-05-07 08:39 ==
LOC: ER 01:56
DX: R45.851 Suicidal ideations (principal); F31.9 Bipolar disorder, unspecified; F20.9 Schizophrenia, unspecified; F15.10 Other stimulant abuse, uncomplicated; F12.10 Cannabis abuse, uncomplicated; Z82.49 Family history of ischemic heart disease and other diseases of the circulatory system; Z20.822 Contact with and (suspected) exposure to COVID-19
CPT/HCPCS: 36415; 80048; 80076; 80143; 80307; 80320; 81003; 85025; 87426; 96372 ×4; 99291; C9803; J1200 ×2; J1630 ×2; J2060 ×2; G0480

== ENCOUNTER 2021-05-16 12:19 | Emergency (ER) | payer OTHER ==
[~2021-05-16] VITALS: Ht 182.9 cm; Wt 108.0 kg
[2021-05-16 13:57] LABS: BASOPHILS # (AUTO) 0.1 K/uL (0.0-0.2); BASOPHILS % (AUTO) 0.5 % (0.0-2.0); EOSINOPHILS % (AUTO) 1.4 % (0.0-6.0); HEMATOCRIT 45 % (39-51); HEMOGLOBIN 14.6 g/dL (13.5-17.5); LYMPHOCYTES # (AUTO) 2.3 K/uL (0.8-4.8); LYMPHOCYTES % (AUTO) 16.2 % (20.0-44.0); MEAN CORPUSCULAR HGB CONC 33 g/dl (31.0-36.0); MEAN CORPUSCULAR VOLUME 92 fL (80-96); MONOCYTES # (AUTO) 1.3 K/uL (0.1-1.30); MONOCYTES % (AUTO) 9.4 % (2.0-12.0); NEUTROPHILS # (AUTO) 10.3 K/uL (1.8-8.9); NEUTROPHILS % (AUTO) 72.5 % (43.0-81.0); PLATELET COUNT (AUTO) 239 K/uL (150-450); RED BLOOD CELL COUNT(AUTO) 4.89 MIL/uL (4.5-6.0); WHITE BLOOD COUNT (AUTO) 14.3 K/uL (4.3-11.0)
[2021-05-16 14:09] LABS: BILIRUBIN,URINE SMALL (NEGATIVE); COLOR,URINE YELLOW (YELLOW); LEUKOCYTE ESTERASE ,URINE NEGATIVE (NEGATIVE); NITRITE, URINE NEGATIVE (NEGATIVE); PH,URINE 5.5 (5.0-8.0); PROTEIN,URINE TRACE mg/dl (NEGATIVE); UGLUCOSE NEGATIVE (NEGATIVE); UROBILINOGEN,URINE 0.2 EU/dL (0.2)
[2021-05-16 14:32] LABS: BACTERIA,URINE Rare /HPF (None Seen); RBC,URINE NONE SEEN /HPF (0-2); SQUAMOUS EPITHELIAL CELL,UR Rare /HPF (None Seen); URINE AMORPHOUS URATE Many /HPF (None Seen); WBC,URINE 0-2 /HPF (0-3)
[2021-05-16 15:22] LABS: CALCIUM, SERUM 9.6 mg/dL (8.5-10.1); CARBON DIOXIDE 24 mmol/L (21-32); CHLORIDE 98 mmol/L (98-107); CREATININE 1.2 mg/dL (0.6-1.3); GLUCOSE 106 mg/dL (74-106); POTASSIUM 4.3 mmol/L (3.5-5.1); SODIUM SERUM 137 mmol/L (136-145); UREA NITROGEN, BLOOD 19 mg/dL (7-18)
[2021-05-16 15:31] LABS: ALANINE AMINOTRANSFERASE 59 U/L (12-78); ALBUMIN 4.8 g/dL (3.4-5.0); ALCOHOL, BLOOD < 3 mg/dL (0-0); ALKALINE PHOSPHATASE 97 U/L (46-116); ASPARTATE AMINOTRANSFERASE 52 U/L (15-37); BILIRUBIN,DIRECT 0.1 mg/dL (0.0-0.2); BILIRUBIN,TOTAL 0.6 mg/dL (0.2-1.0); TOTAL PROTEIN, SERUM 8.3 g/dL (6.4-8.2)
[2021-05-16 18:32] LABS: ACETAMINOPHEN 0 ug/ml (10-30)
--- NOTE | 2021-05-16 22:18 | NUR ---
FAXED FACESHEET AND CLINICALS TO [facility]
--- NOTE | 2021-05-17 01:45 | NUR ---
SPOKE WITH ART TORIE ROSADO OVER PAPER WORK FOR INTAKE
--- NOTE | 2021-05-17 02:58 | NUR ---
ACCEPTED UNDER DR MOROCHO, REPROT
--- NOTE | 2021-05-17 03:01 | NUR ---
[facility] ETA 30-45 MIN
--- NOTE | 2021-05-17 03:25 | NUR ---
REPORT GIVEN TO PATRICIA
--- NOTE | 2021-05-17 03:34 | NUR ---
EMS AT BEDSIDE GIVEN REPORT
[2021-05-17 03:42] VITALS: BP 136/71
== END 2021-05-17 03:42 ==
LOC: ER 12:21
DX: R45.851 Suicidal ideations (principal); F20.9 Schizophrenia, unspecified; F31.9 Bipolar disorder, unspecified; Z59.01 Sheltered homelessness
CPT/HCPCS: 36415; 80048; 80076; 80143; 80307; 80320; 81001; 85025; 87426; 99285; C9803; G0480

== ENCOUNTER 2021-06-14 21:41 | Emergency (ER) | payer MEDICAID ==
[~2021-06-14] VITALS: Ht 172.7 cm; Wt 97.5 kg
--- NOTE | 2021-06-14 22:00 | NUR ---
PATIENT BIBELF C/O SI WITH PLAN OF OD. PATIENT REQ FOR VOL PSYCH ADMIT. PATIENT IS A/O X 4, RR EVEN AND UNLABORED, NO SOB NOTED. PATIENT CALM AND COOPERATIVE. NOTED WITH STEADY GAIT. WELL KEPT. WILL CONTINUE TO MONITOR.
--- NOTE | 2021-06-14 22:54 | NUR ---
URINE AND COVID SWAB COLLECTED
[2021-06-14 22:59] LABS: BASOPHILS % (AUTO) 0.4 % (0.0-2.0); EOSINOPHILS % (AUTO) 3.2 % (0.0-6.0); HEMATOCRIT 42 % (39-51); HEMOGLOBIN 13.8 g/dL (13.5-17.5); LYMPHOCYTES # (AUTO) 2.8 K/uL (0.8-4.8); LYMPHOCYTES % (AUTO) 28.5 % (20.0-44.0); MEAN CORPUSCULAR HGB CONC 33 g/dl (31.0-36.0); MEAN CORPUSCULAR VOLUME 89 fL (80-96); MONOCYTES # (AUTO) 0.9 K/uL (0.1-1.30); MONOCYTES % (AUTO) 8.8 % (2.0-12.0); NEUTROPHILS # (AUTO) 5.7 K/uL (1.8-8.9); NEUTROPHILS % (AUTO) 59.1 % (43.0-81.0); PLATELET COUNT (AUTO) 321 K/uL (150-450); RED BLOOD CELL COUNT(AUTO) 4.72 MIL/uL (4.5-6.0); WHITE BLOOD COUNT (AUTO) 9.7 K/uL (4.3-11.0)
[2021-06-14 23:15] LABS: ALANINE AMINOTRANSFERASE 38 U/L (12-78); ALBUMIN 4.4 g/dL (3.4-5.0); ALCOHOL, BLOOD < 3 mg/dL (0-0); ALKALINE PHOSPHATASE 80 U/L (46-116); ASPARTATE AMINOTRANSFERASE 40 U/L (15-37); BILIRUBIN,DIRECT 0.2 mg/dL (0.0-0.2); BILIRUBIN,TOTAL 0.7 mg/dL (0.2-1.0); CALCIUM, SERUM 9.2 mg/dL (8.5-10.1); CARBON DIOXIDE 24 mmol/L (21-32); CHLORIDE 102 mmol/L (98-107); CREATININE 1.1 mg/dL (0.6-1.3); GLUCOSE 101 mg/dL (74-106); POTASSIUM 3.9 mmol/L (3.5-5.1); SODIUM SERUM 137 mmol/L (136-145); TOTAL PROTEIN, SERUM 8.3 g/dL (6.4-8.2); UREA NITROGEN, BLOOD 19 mg/dL (7-18)
[2021-06-14 23:41] LABS: ACETAMINOPHEN < 2 ug/ml (10-30)
--- NOTE | 2021-06-14 23:50 | NUR ---
CALL FROM LAB. RAPID COVID POSITIVE.
[2021-06-15 01:08] LABS: BILIRUBIN,URINE SMALL (NEGATIVE); COLOR,URINE YELLOW (YELLOW); LEUKOCYTE ESTERASE ,URINE NEGATIVE (NEGATIVE); NITRITE, URINE NEGATIVE (NEGATIVE); PH,URINE 5.5 (5.0-8.0); PROTEIN,URINE NEGATIVE (NEGATIVE); UGLUCOSE NEGATIVE (NEGATIVE); UROBILINOGEN,URINE 0.2 EU/dL (0.2)
--- NOTE | 2021-06-15 02:15 | NUR ---
FACESHEET AND CLINICALS FAXED TO [facility].
--- NOTE | 2021-06-15 08:40 | NUR ---
BREAKFAST TRAY PROVIDED.
--- NOTE | 2021-06-15 09:12 | NUR ---
CALLED [facility] INTAKE FOR UPDATE. PT ACCEPTED TO [facility] IN [place] UNDER DR. DUKES AND DR. CAR CALL [phone] X [phone].
--- NOTE | 2021-06-15 09:17 | NUR ---
CALLED [facility] ETA 60 MINS PER MICHAEL.
--- NOTE | 2021-06-15 09:23 | NUR ---
CALLED [facility] RUN MANUEL KRISHNAN NOT AVAILABLE. WILL CALL BACK AFTER 10 MINS.
--- NOTE | 2021-06-15 09:39 | NUR ---
CALLED [facility] SUGARLOAF FOR REPORT RN NOT AVAILABLE PER UNIT SEC THEY WILL CALL ME BACK WHEN RN IS READY
--- NOTE | 2021-06-15 10:19 | NUR ---
REPORT GIVEN SHORTY SHOOK RN OF [facility], UNIT P4 COVID UNIT
[2021-06-15 10:22] VITALS: BP 142/76
--- NOTE | 2021-06-15 10:23 | NUR ---
PATIENT PICKED UP BY [facility] UNIT 280 IN STABLE CONDITION. PATIENT [facility] BE [facility]SF[facility] ALL BELONGINGS WITH THE PATIENT.
== END 2021-06-15 10:23 ==
LOC: ER 21:42
DX: R45.851 Suicidal ideations (principal); U07.1 COVID-19; F19.10 Other psychoactive substance abuse, uncomplicated; F20.9 Schizophrenia, unspecified; F31.9 Bipolar disorder, unspecified; F17.200 Nicotine dependence, unspecified, uncomplicated; Z60.2 Problems related to living alone
CPT/HCPCS: 36415; 80048; 80076; 80143; 80307; 80320; 81003; 85025; 87426; 99285; C9803; G0480

== ENCOUNTER 2021-07-27 16:57 | Emergency (ER) | payer MEDICAID ==
[~2021-07-27] VITALS: Ht 177.8 cm; Wt 106.6 kg
--- NOTE | 2021-07-27 16:57 | NUR ---
PT BIB SELF C/O SI "I WANT TO HANG MYSELF" REQUESTING VOLUNTARY PSYCH ADMISSION." PT IS AAOX4, NOT IN RESPIRATORY DISTRESS, V/S STABLE, KEPT RESTED AND COMFORTABLE. WILL CONTINUE TO MONITOR.
--- NOTE | 2021-07-27 16:57 | NUR ---
Note eddi in ED - 07/27/21 at 1709 by JENNY PT BIB SELF C/O SI "I WANT TO RUN THRU TRAFFIC" REQUESTING VOLUNTARY PSYCH ADMISSION." PT IS AAOX4, NOT IN RESPIRATORY DISTRESS, V/S STABLE, KEPT RESTED AND COMFORTABLE. WILL CONTINUE TO MONITOR.
[2021-07-27 17:03] VITALS: BP 138/84
--- NOTE | 2021-07-27 17:03 | NUR ---
URINE SPECIMEN COLLECTED AND SENT TO LAB.
[2021-07-27 17:46] LABS: BASOPHILS % (AUTO) 0.6 % (0.0-2.0); EOSINOPHILS % (AUTO) 7.5 % (0.0-6.0); HEMATOCRIT 44 % (39-51); HEMOGLOBIN 14.6 g/dL (13.5-17.5); LYMPHOCYTES % (AUTO) 24.8 % (20.0-44.0); MEAN CORPUSCULAR HGB CONC 33 g/dl (31.0-36.0); MEAN CORPUSCULAR VOLUME 88 fL (80-96); MONOCYTES # (AUTO) 0.8 K/uL (0.1-1.30); MONOCYTES % (AUTO) 9.5 % (2.0-12.0); NEUTROPHILS # (AUTO) 4.6 K/uL (1.8-8.9); NEUTROPHILS % (AUTO) 57.6 % (43.0-81.0); PLATELET COUNT (AUTO) 294 K/uL (150-450); RED BLOOD CELL COUNT(AUTO) 4.95 MIL/uL (4.5-6.0)
[2021-07-27 17:54] LABS: CALCIUM, SERUM 9.3 mg/dL (8.5-10.1); CARBON DIOXIDE 29 mmol/L (21-32); CHLORIDE 103 mmol/L (98-107); GLUCOSE 114 mg/dL (74-106); POTASSIUM 3.6 mmol/L (3.5-5.1); SODIUM SERUM 138 mmol/L (136-145); UREA NITROGEN, BLOOD 15 mg/dL (7-18)
[2021-07-27 18:00] LABS: ALANINE AMINOTRANSFERASE 24 U/L (12-78); ALBUMIN 4.3 g/dL (3.4-5.0); ALCOHOL, BLOOD < 3 mg/dL (0-0); ALKALINE PHOSPHATASE 109 U/L (46-116); ASPARTATE AMINOTRANSFERASE 17 U/L (15-37); BILIRUBIN,DIRECT 0.1 mg/dL (0.0-0.2); BILIRUBIN,TOTAL 0.3 mg/dL (0.2-1.0); TOTAL PROTEIN, SERUM 8.1 g/dL (6.4-8.2)
[2021-07-27 18:01] LABS: ACETAMINOPHEN < 2 ug/ml (10-30)
[2021-07-27 18:10] LABS: BILIRUBIN,URINE NEGATIVE (NEGATIVE); COLOR,URINE YELLOW (YELLOW); LEUKOCYTE ESTERASE ,URINE NEGATIVE (NEGATIVE); NITRITE, URINE NEGATIVE (NEGATIVE); PH,URINE 5.5 (5.0-8.0); PROTEIN,URINE NEGATIVE (NEGATIVE); UGLUCOSE NEGATIVE (NEGATIVE); UROBILINOGEN,URINE 0.2 EU/dL (0.2)
--- NOTE | 2021-07-27 19:55 | NUR ---
FAXED CLINICALS AND FACE SHEET TO [facility]
--- NOTE | 2021-07-28 00:55 | NUR ---
TO [place] UNDER DR DAVIS PER STEPH AVILA
--- NOTE | 2021-07-28 00:56 | NUR ---
NUMBER FOR REPORT IS [id number] EXT [phone]
--- NOTE | 2021-07-28 01:15 | NUR ---
[facility] WILL BE HERE IN 30 MINS TO TRANSPORT TO [facility]
--- NOTE | 2021-07-28 01:50 | NUR ---
JANINE HNASON AT [facility]
--- NOTE | 2021-07-28 01:52 | NUR ---
REPORT GIVEN TO [facility]
--- NOTE | 2021-07-28 01:53 | NUR ---
REPORT GIVEN TO EMS AT BEDSIDE
--- NOTE | 2021-07-28 02:10 | NUR ---
TRANSFERRED TO [facility] IN STABLE CONDITION. ALL BELONGINGS PICKED UP
== END 2021-07-28 02:16 ==
LOC: ER 16:59
DX: R45.851 Suicidal ideations (principal); F19.10 Other psychoactive substance abuse, uncomplicated; Z20.822 Contact with and (suspected) exposure to COVID-19; F17.200 Nicotine dependence, unspecified, uncomplicated; F31.9 Bipolar disorder, unspecified; F20.9 Schizophrenia, unspecified; Z86.16 Personal history of COVID-19
CPT/HCPCS: 36415; 80048; 80076; 80143; 80307; 80320; 81003; 85025; 87426; 99285; C9803; G0480

== ENCOUNTER 2021-08-05 14:27 | Emergency (ER) | payer MEDICAID ==
[~2021-08-05] VITALS: Ht 180.3 cm; Wt 106.1 kg
[2021-08-05 14:54] VITALS: BP 139/76
--- NOTE | 2021-08-05 14:54 | NUR ---
TO ER BED 18, BIB SELF C/O SI "I WANT TO HANG MYSELF" REQUESTING VOLUNTARY PSYCH ADMISSION, AAOX3, BREATHING EVEN AND NON LABORED, AWAITING MD BENDER
--- NOTE | 2021-08-05 15:57 | NUR ---
PATIENT ELOPED IN STABLE CONDITION, AWARE
== END 2021-08-05 17:04 | disposition left against medical advice (07) ==
LOC: ER 14:29
DX: R45.851 Suicidal ideations (principal); F20.9 Schizophrenia, unspecified; F31.9 Bipolar disorder, unspecified; Z60.2 Problems related to living alone

== ENCOUNTER 2021-08-14 09:07 | Emergency (ER) | payer MEDICAID ==
[~2021-08-14] VITALS: Ht 180.3 cm; Wt 99.8 kg
[2021-08-14 09:15] VITALS: BP 152/91
--- NOTE | 2021-08-14 09:21 | NUR ---
AT BEDSIDE FOR EVAL.
[2021-08-14] MEDS ORDERED: BUSP5TAB3 PO (09:36)
--- NOTE | 2021-08-14 09:57 | NUR ---
Patient discharged to home in stable condition. Written and verbal after care instructions given. Patient verbalizes understanding of instruction.
== END 2021-08-14 09:58 | disposition home or self-care (01) ==
LOC: ER 09:17
DX: F15.10 Other stimulant abuse, uncomplicated (principal); Z76.0 Encounter for issue of repeat prescription; F31.9 Bipolar disorder, unspecified; F20.9 Schizophrenia, unspecified; F17.200 Nicotine dependence, unspecified, uncomplicated; Z86.59 Personal history of other mental and behavioral disorders; Z60.2 Problems related to living alone; Z79.1 Long term (current) use of non-steroidal anti-inflammatories (NSAID); Z79.899 Other long term (current) drug therapy

== ENCOUNTER 2021-08-15 02:45 | Emergency (ER) | payer MEDICAID ==
[~2021-08-15] VITALS: Ht 180.3 cm; Wt 74.8 kg
[~2021-08-15 02:45] MED LIST changes: +BUSP5TAB3 PO
--- NOTE | 2021-08-15 03:33 | NUR ---
BIBS C/O S/I WITH PLAN TO HANG HIMSELF. PATIENT ALERT AND ORIENTED X3. AMBULATORY WITH NON LABORED BREATHING. PATIENT IN BED 18 BELONGINGS TAKEN PLACED IN LOCKER. AWAITING MD BENDER.
--- NOTE | 2021-08-15 03:34 | NUR ---
URINE COLLECTED AND SENT TO LAB
--- NOTE | 2021-08-15 03:35 | NUR ---
COVID SWAB DONE AND SENT TO LAB
--- NOTE | 2021-08-15 03:35 | NUR ---
BLOOD COLLECTED AND SENT TO LAB
[2021-08-15 03:38] LABS: BASOPHILS # (AUTO) 0.1 K/uL (0.0-0.2); BASOPHILS % (AUTO) 0.8 % (0.0-2.0); EOSINOPHILS % (AUTO) 2.5 % (0.0-6.0); HEMATOCRIT 49 % (39-51); HEMOGLOBIN 15.9 g/dL (13.5-17.5); LYMPHOCYTES # (AUTO) 3.1 K/uL (0.8-4.8); LYMPHOCYTES % (AUTO) 26.9 % (20.0-44.0); MEAN CORPUSCULAR HGB CONC 33 g/dl (31.0-36.0); MEAN CORPUSCULAR VOLUME 89 fL (80-96); MONOCYTES % (AUTO) 8.7 % (2.0-12.0); NEUTROPHILS % (AUTO) 61.1 % (43.0-81.0); PLATELET COUNT (AUTO) 373 K/uL (150-450); RED BLOOD CELL COUNT(AUTO) 5.49 MIL/uL (4.5-6.0); WHITE BLOOD COUNT (AUTO) 11.5 K/uL (4.3-11.0)
[2021-08-15 03:55] LABS: ALANINE AMINOTRANSFERASE 41 U/L (12-78); ALBUMIN 4.8 g/dL (3.4-5.0); ALCOHOL, BLOOD < 3 mg/dL (0-0); ALKALINE PHOSPHATASE 91 U/L (46-116); ASPARTATE AMINOTRANSFERASE 50 U/L (15-37); BILIRUBIN,DIRECT 0.2 mg/dL (0.0-0.2); BILIRUBIN,TOTAL 0.7 mg/dL (0.2-1.0); CALCIUM, SERUM 9.4 mg/dL (8.5-10.1); CARBON DIOXIDE 25 mmol/L (21-32); CHLORIDE 104 mmol/L (98-107); CREATININE 1.3 mg/dL (0.6-1.3); GLUCOSE 112 mg/dL (74-106); POTASSIUM 3.8 mmol/L (3.5-5.1); SODIUM SERUM 140 mmol/L (136-145); TOTAL PROTEIN, SERUM 9.1 g/dL (6.4-8.2); UREA NITROGEN, BLOOD 21 mg/dL (7-18)
[2021-08-15 03:57] LABS: ACETAMINOPHEN < 2 ug/ml (10-30)
[2021-08-15 04:00] LABS: BILIRUBIN,URINE SMALL (NEGATIVE); COLOR,URINE YELLOW (YELLOW); LEUKOCYTE ESTERASE ,URINE NEGATIVE (NEGATIVE); NITRITE, URINE POSITIVE (NEGATIVE); PH,URINE 5.5 (5.0-8.0); PROTEIN,URINE TRACE mg/dl (NEGATIVE); UGLUCOSE NEGATIVE (NEGATIVE)
[2021-08-15 04:12] LABS: BACTERIA,URINE Few /HPF (None Seen); MUCUS,URINE Few /LPF (None Seen); RBC,URINE 0-2 /HPF (0-2); SQUAMOUS EPITHELIAL CELL,UR Few /HPF (None Seen); WBC,URINE 0-2 /HPF (0-3)
--- NOTE | 2021-08-15 08:01 | NUR ---
BREAKFAST TRAY PROVIDED. TOLERATED WELL
--- NOTE | 2021-08-15 08:31 | NUR ---
CALLED [facility] PT ACCEPTED TO UNDER DR. BARNES CALL [phone] FOR REPORT.
--- NOTE | 2021-08-15 09:02 | NUR ---
TRANSPORT ETA IS 45 MINS. PER PAM WESTON.
[2021-08-15 09:22] VITALS: BP 147/86
--- NOTE | 2021-08-15 09:38 | NUR ---
PICKED UP BY [facility] IN STABLE CONDITION. ALL BELONGINGS GIVEN TO THE PATIENT. ALL DOCUMENTS PROVIDED TO BE GIVEN AT [facility].
== END 2021-08-15 09:42 ==
LOC: ER 02:48
DX: R45.851 Suicidal ideations (principal); F19.10 Other psychoactive substance abuse, uncomplicated; Z59.00 Homelessness unspecified; Z20.822 Contact with and (suspected) exposure to COVID-19; F31.9 Bipolar disorder, unspecified; F20.9 Schizophrenia, unspecified
CPT/HCPCS: 36415; 80048; 80076; 80143; 80307; 80320; 81001; 85025; 87086; 87426; 99285; C9803; G0480

== ENCOUNTER 2021-08-23 09:48 | Emergency (ER) | payer MEDICAID ==
[~2021-08-23] VITALS: Ht 180.3 cm; Wt 99.8 kg
--- NOTE | 2021-08-23 09:48 | NUR ---
PT BIB SELF C/O SI "I WANT TO RUN THRU TRAFFIC" REQUESTING VOLUNTARY PSYCH ADMISSION. PT IS AAOX4, NOT IN RESPIRATORY DISTRESS, V/S STABLE, KEPT RESTED AND COMFORTABLE. WILL CONTINUE TO MONITOR.
--- NOTE | 2021-08-23 09:55 | NUR ---
URINE SPECIMEN COLLECTED AND SENT TO LAB.
--- NOTE | 2021-08-23 10:17 | NUR ---
COVID SWAB DONE AND SENT TO LAB
[2021-08-23 10:44] LABS: BASOPHILS # (AUTO) 0.1 K/uL (0.0-0.2); BASOPHILS % (AUTO) 0.8 % (0.0-2.0); EOSINOPHILS % (AUTO) 1.9 % (0.0-6.0); HEMATOCRIT 45 % (39-51); LYMPHOCYTES % (AUTO) 21.8 % (20.0-44.0); MEAN CORPUSCULAR HGB CONC 33 g/dl (31.0-36.0); MEAN CORPUSCULAR VOLUME 87 fL (80-96); MONOCYTES # (AUTO) 0.8 K/uL (0.1-1.30); MONOCYTES % (AUTO) 8.6 % (2.0-12.0); NEUTROPHILS % (AUTO) 66.9 % (43.0-81.0); PLATELET COUNT (AUTO) 339 K/uL (150-450); WHITE BLOOD COUNT (AUTO) 8.9 K/uL (4.3-11.0)
[2021-08-23 10:53] LABS: CALCIUM, SERUM 9.7 mg/dL (8.5-10.1); CARBON DIOXIDE 25 mmol/L (21-32); CHLORIDE 103 mmol/L (98-107); CREATININE 1.1 mg/dL (0.6-1.3); GLUCOSE 114 mg/dL (74-106); POTASSIUM 3.9 mmol/L (3.5-5.1); SODIUM SERUM 140 mmol/L (136-145); UREA NITROGEN, BLOOD 20 mg/dL (7-18)
[2021-08-23 10:57] LABS: BILIRUBIN,URINE SMALL (NEGATIVE); COLOR,URINE DARK YELLOW (YELLOW); LEUKOCYTE ESTERASE ,URINE NEGATIVE (NEGATIVE); NITRITE, URINE NEGATIVE (NEGATIVE); PH,URINE 5.5 (5.0-8.0); PROTEIN,URINE 30 mg/dl (NEGATIVE); UGLUCOSE NEGATIVE (NEGATIVE)
[2021-08-23 10:59] LABS: ALANINE AMINOTRANSFERASE 75 U/L (12-78); ALBUMIN 4.6 g/dL (3.4-5.0); ALCOHOL, BLOOD < 3 mg/dL (0-0); ALKALINE PHOSPHATASE 94 U/L (46-116); ASPARTATE AMINOTRANSFERASE 50 U/L (15-37); BILIRUBIN,DIRECT 0.2 mg/dL (0.0-0.2); BILIRUBIN,TOTAL 0.7 mg/dL (0.2-1.0); TOTAL PROTEIN, SERUM 8.7 g/dL (6.4-8.2)
[2021-08-23 11:04] LABS: ACETAMINOPHEN 0 ug/ml (10-30)
[2021-08-23 11:32] LABS: BACTERIA,URINE None seen /HPF (None Seen); MUCUS,URINE Moderate /LPF (None Seen); SPERM,URINE Present /HPF (None Seen); SQUAMOUS EPITHELIAL CELL,UR None Seen /HPF (None Seen)
--- NOTE | 2021-08-23 12:21 | NUR ---
FAXED CLINICALS TO [facility]
--- NOTE | 2021-08-23 13:50 | NUR ---
PT. [facility] UND[facility]. [place]. PLEASE CALL IN REPORT TO NURSING IVONNE WILLIAM [[phone]] AFTER 1530.
--- NOTE | 2021-08-23 13:55 | NUR ---
[facility] CALLED FOR TRANSPORT AFTER 1530 ETA IS 1600
--- NOTE | 2021-08-23 15:45 | NUR ---
REPORT GIVEN TO MIRANDA KRISHNAN OF [facility]
[2021-08-23 16:20] VITALS: BP 128/71
--- NOTE | 2021-08-23 16:20 | NUR ---
REPORT GIVEN TO EMT FOR PT TRANSFER TO [facility].
== END 2021-08-23 16:21 ==
LOC: ER 09:57
DX: R45.851 Suicidal ideations (principal); F31.9 Bipolar disorder, unspecified; F20.9 Schizophrenia, unspecified; Z20.822 Contact with and (suspected) exposure to COVID-19; Z59.01 Sheltered homelessness
CPT/HCPCS: 36415; 80048; 80076; 80143; 80307; 80320; 81001; 85025; 87426; 99285; C9803; G0480

== ENCOUNTER 2021-10-11 17:12 | Emergency (ER) | payer MEDICAID ==
[~2021-10-11] VITALS: Ht 180.3 cm; Wt 98.9 kg
[2021-10-11 17:29] VITALS: BP 133/79
--- NOTE | 2021-10-11 17:29 | NUR ---
CAME HERE FOR MEDICAL CLEARANCE FOR VOLUNTARY ADMISSION TO [facility], PATIENT STATES HE IS SUICIDAL W/O PLAN. TO ER BED 18, HOOKED TO MONITOR, CHANGED TO HOSP GOWN, BELONGINGS PLACED IN PATIENT LOCKER. SECURITY CALLED FOR WANDING.
--- NOTE | 2021-10-11 17:36 | NUR ---
SECURITY AT BEDSIDE FOR WANDING
--- NOTE | 2021-10-11 18:13 | NUR ---
TELLY RAMIREZ AT BEDSIDE
--- NOTE | 2021-10-11 18:22 | NUR ---
PATIENT REFUSES BLOOD DRAW FROM PHLEB AND REFUSES TO PROVIDE URINE SAMPLE
[2021-10-11 18:24] LABS: BILIRUBIN,URINE SMALL (NEGATIVE); COLOR,URINE YELLOW (YELLOW); LEUKOCYTE ESTERASE ,URINE NEGATIVE (NEGATIVE); NITRITE, URINE NEGATIVE (NEGATIVE); PROTEIN,URINE NEGATIVE (NEGATIVE); UGLUCOSE NEGATIVE (NEGATIVE)
--- NOTE | 2021-10-11 18:32 | NUR ---
ATTEMPTED TO ASK FOR BLOOD DRAW, STILL REFUSED. ALSO STILL REFUSES TO PROVIDE URINE SAMPLE. MADE TELLY RAMIREZ AWARE
[2021-10-11 18:34] LABS: BACTERIA,URINE RARE /HPF (None Seen); MUCUS,URINE Many /LPF (None Seen); RBC,URINE 0-2 /HPF (0-2); WBC,URINE 0-2 /HPF (0-3)
--- NOTE | 2021-10-11 18:38 | NUR ---
CALLED SECURITY TO ASSIST PATIENT. STILL REFUSES BLOOD DRAW. PATIENT DECIDED TO LEAVE EMERGENCY DEPT. MADE GERALDINE RAMIREZ AWARE
--- NOTE | 2021-10-11 18:40 | NUR ---
PATIENT STATES "I AM NOT SUICIDAL ANYMORE, I WANT TO LEAVE"
--- NOTE | 2021-10-11 18:52 | NUR ---
Patient does not wish to proceed with medical care recommended by JESS VARNER. Patient given information related to possible complications, up to and including , which could occur as a result of leaving the hospital at this time. Patient verbalizes understanding of risks involved due to leaving against medical advice. Patient refused to sign AMA form.
== END 2021-10-11 19:06 | disposition left against medical advice (07) ==
LOC: ER 17:16
DX: Z13.39 Encounter for screening examination for other mental health and behavioral disorders (principal); F20.9 Schizophrenia, unspecified; F31.9 Bipolar disorder, unspecified; F17.200 Nicotine dependence, unspecified, uncomplicated; Z79.899 Other long term (current) drug therapy
CPT/HCPCS: 81001

== ENCOUNTER 2021-10-12 06:26 | Emergency (ER) | payer MEDICAID ==
[~2021-10-12] VITALS: Ht 185.4 cm; Wt 83.9 kg
--- NOTE | 2021-10-12 06:45 | NUR ---
PATIENT BIBSELF C/O +SI, VOL PSYCH ADMIT TO [facility]. PATIENT IS A/O X 4, RR EVEN AND UNLABORED. NO ACUTE DISTRESS NOTED. PATIENT TAKEN TO ER BED 18. AMBULATORY WITH STEADY GAIT. PATIENT PLACED IN HOSPITAL GOWN. PATIENT BELONGINGS IN LOCKER. WILL CONTINUE TO MONITOR.
--- NOTE | 2021-10-12 06:46 | NUR ---
URINE COLLECTED SENT TO LAB
--- NOTE | 2021-10-12 06:46 | NUR ---
[facility] COLLECTED SENT TO LAB
--- NOTE | 2021-10-12 07:01 | NUR ---
[employer] TELEVISION INSTALLER AT PT'S BEDSIDE
[2021-10-12 07:18] LABS: CALCIUM, SERUM 9.8 mg/dL (8.5-10.1); CARBON DIOXIDE 27 mmol/L (21-32); CHLORIDE 102 mmol/L (98-107); GLUCOSE 111 mg/dL (74-106); POTASSIUM 4.5 mmol/L (3.5-5.1); SODIUM SERUM 139 mmol/L (136-145); UREA NITROGEN, BLOOD 17 mg/dL (7-18)
[2021-10-12 07:19] LABS: BILIRUBIN,URINE NEGATIVE (NEGATIVE); COLOR,URINE YELLOW (YELLOW); LEUKOCYTE ESTERASE ,URINE NEGATIVE (NEGATIVE); NITRITE, URINE NEGATIVE (NEGATIVE); PROTEIN,URINE NEGATIVE (NEGATIVE); UGLUCOSE NEGATIVE (NEGATIVE); UROBILINOGEN,URINE 0.2 EU/dL (0.2)
[2021-10-12 07:27] LABS: ALANINE AMINOTRANSFERASE 25 U/L (12-78); ALBUMIN 4.6 g/dL (3.4-5.0); ALKALINE PHOSPHATASE 78 U/L (46-116); ASPARTATE AMINOTRANSFERASE 21 U/L (15-37); BILIRUBIN,DIRECT 0.2 mg/dL (0.0-0.2); BILIRUBIN,TOTAL 0.7 mg/dL (0.2-1.0); TOTAL PROTEIN, SERUM 8.3 g/dL (6.4-8.2)
[2021-10-12 07:29] LABS: ACETAMINOPHEN < 10 ug/ml (10-30); ALCOHOL, BLOOD < 3 mg/dL (0-0)
[2021-10-12 07:30] LABS: BASOPHILS # (AUTO) 0.1 K/uL (0.0-0.2); BASOPHILS % (AUTO) 0.7 % (0.0-2.0); EOSINOPHILS % (AUTO) 4.5 % (0.0-6.0); HEMATOCRIT 43 % (39-51); HEMOGLOBIN 14.4 g/dL (13.5-17.5); LYMPHOCYTES # (AUTO) 2.4 K/uL (0.8-4.8); LYMPHOCYTES % (AUTO) 22.3 % (20.0-44.0); MEAN CORPUSCULAR HGB CONC 34 g/dl (31.0-36.0); MEAN CORPUSCULAR VOLUME 87 fL (80-96); MONOCYTES # (AUTO) 1.1 K/uL (0.1-1.30); MONOCYTES % (AUTO) 10.8 % (2.0-12.0); NEUTROPHILS # (AUTO) 6.5 K/uL (1.8-8.9); NEUTROPHILS % (AUTO) 61.7 % (43.0-81.0); PLATELET COUNT (AUTO) 304 K/uL (150-450); RED BLOOD CELL COUNT(AUTO) 4.93 MIL/uL (4.5-6.0); WHITE BLOOD COUNT (AUTO) 10.6 K/uL (4.3-11.0)
--- NOTE | 2021-10-12 07:47 | NUR ---
BREAKFAST TRAY PROVIDED.
--- NOTE | 2021-10-12 10:25 | NUR ---
PT STATED HE WANTS A BED AND CANNOT WAIT FOR [facility] ANYMORE.
--- NOTE | 2021-10-12 10:27 | NUR ---
PT STATED HE IS NOT SUICIDAL ANYMORE AND WANTS TO BE DISCHARGED.
--- NOTE | 2021-10-12 10:32 | NUR ---
Patient discharged to home in stable condition. Written and verbal after care instructions given. Patient verbalizes understanding of instruction.
[2021-10-12 10:33] VITALS: BP 127/88
== END 2021-10-12 10:33 | disposition home or self-care (01) ==
LOC: ER 06:28
DX: F15.10 Other stimulant abuse, uncomplicated (principal); F31.9 Bipolar disorder, unspecified; F20.9 Schizophrenia, unspecified; Z59.00 Homelessness unspecified; Z20.822 Contact with and (suspected) exposure to COVID-19; Z53.29 Procedure and treatment not carried out because of patient's decision for other reasons
CPT/HCPCS: 36415; 80048; 80076; 80143; 80179; 80307; 80320; 81003; 85025; 87426; 99283; C9803; G0480

== ENCOUNTER 2021-10-23 00:49 | Emergency (ER) | payer MEDICAID ==
[~2021-10-23] VITALS: Ht 180.3 cm; Wt 90.7 kg
--- NOTE | 2021-10-23 01:23 | NUR ---
BIBS. TO ER BED 18. AAOX4. NOT IN DISTRESS. AMBULATORY. CAME IN FOR SUICIDAL IDEATION WITH PLAN TO HANG HIMSELF. PT IS SEEKING TO BE MEDICALLY CLEARED FOR VOLUNTARY ADMISSION. DENIES HOMICIDAL IDEATION. PT IS GOWNED, BELONGINGS IN LOCKER AND SITTER WITHIN SIGHT. AWAITING MD FOR EVAL. URINE AND COVID SWAB COLLECTED FOR MED CLEARANCE.
[2021-10-23 02:16] LABS: BILIRUBIN,URINE NEGATIVE (NEGATIVE); COLOR,URINE YELLOW (YELLOW); LEUKOCYTE ESTERASE ,URINE NEGATIVE (NEGATIVE); NITRITE, URINE NEGATIVE (NEGATIVE); PROTEIN,URINE TRACE mg/dl (NEGATIVE); UGLUCOSE NEGATIVE (NEGATIVE)
[2021-10-23 02:16] LABS: BASOPHILS # (AUTO) 0.1 K/uL (0.0-0.2); BASOPHILS % (AUTO) 1.1 % (0.0-2.0); EOSINOPHILS % (AUTO) 2.2 % (0.0-6.0); HEMATOCRIT 45 % (39-51); HEMOGLOBIN 15.3 g/dL (13.5-17.5); LYMPHOCYTES # (AUTO) 2.6 K/uL (0.8-4.8); LYMPHOCYTES % (AUTO) 28.8 % (20.0-44.0); MEAN CORPUSCULAR HGB CONC 34 g/dl (31.0-36.0); MEAN CORPUSCULAR VOLUME 86 fL (80-96); MONOCYTES # (AUTO) 0.9 K/uL (0.1-1.30); MONOCYTES % (AUTO) 10.1 % (2.0-12.0); NEUTROPHILS # (AUTO) 5.2 K/uL (1.8-8.9); NEUTROPHILS % (AUTO) 57.8 % (43.0-81.0); PLATELET COUNT (AUTO) 315 K/uL (150-450); RED BLOOD CELL COUNT(AUTO) 5.27 MIL/uL (4.5-6.0)
[2021-10-23 02:30] LABS: ALANINE AMINOTRANSFERASE 34 U/L (12-78); ALBUMIN 4.7 g/dL (3.4-5.0); ALKALINE PHOSPHATASE 86 U/L (46-116); ASPARTATE AMINOTRANSFERASE 29 U/L (15-37); BILIRUBIN,DIRECT 0.1 mg/dL (0.0-0.2); BILIRUBIN,TOTAL 0.5 mg/dL (0.2-1.0); CHLORIDE 102 mmol/L (98-107); CREATININE 1.2 mg/dL (0.6-1.3); GLUCOSE 116 mg/dL (74-106); POTASSIUM 4.1 mmol/L (3.5-5.1); SODIUM SERUM 139 mmol/L (136-145); TOTAL PROTEIN, SERUM 8.8 g/dL (6.4-8.2); UREA NITROGEN, BLOOD 20 mg/dL (7-18)
[2021-10-23 02:36] LABS: ACETAMINOPHEN < 2 ug/ml (10-30); ALCOHOL, BLOOD < 3 mg/dL (0-0)
[2021-10-23 02:53] LABS: CARBON DIOXIDE 26 mmol/L (21-32)
[2021-10-23 02:54] LABS: CALCIUM, SERUM 9.6 mg/dL (8.5-10.1)
--- NOTE | 2021-10-23 03:37 | NUR ---
CLINICALS FAXED TO [facility]
--- NOTE | 2021-10-23 08:37 | NUR ---
CONTACTED [facility]
--- NOTE | 2021-10-23 09:40 | NUR ---
Followed-up with [facility], still awaiting for feedback.
--- NOTE | 2021-10-23 10:42 | NUR ---
Pt. accepted to [facility] under Dr. Huffman. Call and report to Unit [facility] [[phone]].
--- NOTE | 2021-10-23 10:48 | NUR ---
[facility] CALLED FOR TRANSPORT ETA 1200
--- NOTE | 2021-10-23 11:30 | NUR ---
THE PATIENT IS ALERT AND ORIENTED X4. DENIES PAIN. IN ROOM AIR AND DENIES SOB. RESPIRATION REGULAR AND UNLABORED. THE PATIENT DENIES SI/HI. THE PATIENT DENIES HAVING ANY TYPE OF HALLUCINATIONS. THE PATIENT REQUESTING DISCHARGE FROM ER GOING HOME. THE PATIENT DENIES BEING HOMELESS.
[2021-10-23 11:42] VITALS: BP 131/87
--- NOTE | 2021-10-23 11:42 | NUR ---
Patient discharged to home in stable condition. Written and verbal after care instructions given. Patient verbalizes understanding of instruction.
== END 2021-10-23 11:43 | disposition home or self-care (01) ==
LOC: ER 00:50
DX: R45.851 Suicidal ideations (principal); F19.10 Other psychoactive substance abuse, uncomplicated; Z20.822 Contact with and (suspected) exposure to COVID-19; Z53.20 Procedure and treatment not carried out because of patient's decision for unspecified reasons
CPT/HCPCS: 36415; 80048; 80076; 80143; 80307; 80320; 81003; 85025; 87426; 99285; C9803; G0480

== ENCOUNTER 2021-11-10 21:17 | Emergency (ER) | payer MEDICAID ==
[~2021-11-10] VITALS: Ht 170.2 cm; Wt 90.7 kg
[2021-11-10 22:43] VITALS: BP 147/80
--- NOTE | 2021-11-10 22:45 | NUR ---
TO ER BED 19. BIBSELF C/O RIGHT HAND PAIN X 2 WEEKS. CHANGED INTO GOWN. CONNECTED TO MONITOR. AWAITING MD BENDER
[2021-11-11] MEDS ORDERED: ASPIRIN 325 MG TABLET PO ONE (00:30)
[2021-11-11] MEDS ORDERED: ASPIRIN 325 MG TABLET ONE (00:34)
--- NOTE | 2021-11-11 00:48 | NUR ---
LAB AT BEDSIDE
--- NOTE | 2021-11-11 00:54 | NUR ---
PT REFUSING BLOODWORK AND CHEST XRAY, MADE AWARE
--- NOTE | 2021-11-11 00:55 | NUR ---
PT REFUSED EKG
--- NOTE | 2021-11-11 01:09 | NUR ---
PT REFUSING TO CONTINUE TREATMENT, MADE AWARE
== END 2021-11-11 01:18 | disposition left against medical advice (07) ==
LOC: ER 21:19
DX: R07.89 Other chest pain (principal); M79.641 Pain in right hand; F31.9 Bipolar disorder, unspecified; F20.9 Schizophrenia, unspecified; F17.200 Nicotine dependence, unspecified, uncomplicated; Z79.899 Other long term (current) drug therapy
CPT/HCPCS: 73130-TC

== ENCOUNTER 2021-11-30 10:41 | Emergency (ER) | payer MEDICAID ==
[~2021-11-30] VITALS: Ht 182.9 cm; Wt 104.8 kg
[2021-11-30 10:55] VITALS: BP 103/63
--- NOTE | 2021-11-30 11:37 | NUR ---
COVID SWAB DONE AND SENT TO LAB
--- NOTE | 2021-11-30 12:26 | NUR ---
Patient discharged to home in stable condition. Written and verbal after care instructions given. Patient verbalizes understanding of instruction.
== END 2021-11-30 12:27 | disposition home or self-care (01) ==
LOC: ER 11:00
DX: M79.641 Pain in right hand (principal); F31.9 Bipolar disorder, unspecified; F20.9 Schizophrenia, unspecified; F17.200 Nicotine dependence, unspecified, uncomplicated; Z79.899 Other long term (current) drug therapy
CPT/HCPCS: 73130-TC

== ENCOUNTER 2021-12-10 16:37 | Emergency (ER) | payer MEDICAID ==
--- NOTE | 2021-12-10 16:55 | NUR ---
CALLED TO TRIAGE,NO ANSWER
--- NOTE | 2021-12-10 17:07 | NUR ---
called to triage,no answer
--- NOTE | 2021-12-10 17:23 | NUR ---
Called NO response- Kirsten
== END 2021-12-10 17:24 | disposition home or self-care (01) ==
LOC: ER 16:41
DX: Z53.21 Procedure and treatment not carried out due to patient leaving prior to being seen by health care provider (principal)

== ENCOUNTER 2022-01-14 13:44 | Emergency (ER) | payer MEDICAID ==
[~2022-01-14] VITALS: Ht 180.3 cm; Wt 104.8 kg
[2022-01-14 13:44] VITALS: BP 138/79
[2022-01-14 14:15] LABS: BILIRUBIN,URINE SMALL (NEGATIVE); COLOR,URINE YELLOW (YELLOW); LEUKOCYTE ESTERASE ,URINE NEGATIVE (NEGATIVE); NITRITE, URINE NEGATIVE (NEGATIVE); PH,URINE 5.5 (5.0-8.0); PROTEIN,URINE TRACE mg/dl (NEGATIVE); UGLUCOSE NEGATIVE (NEGATIVE)
[2022-01-14 14:41] LABS: BACTERIA,URINE Few /HPF (None Seen); RBC,URINE 0-2 /HPF (0-2)
[2022-01-14 15:03] LABS: BASOPHILS % (AUTO) 0.3 % (0.0-2.0); EOSINOPHILS % (AUTO) 2.5 % (0.0-6.0); HEMATOCRIT 45 % (39-51); LYMPHOCYTES # (AUTO) 1.8 K/uL (0.8-4.8); LYMPHOCYTES % (AUTO) 16.4 % (20.0-44.0); MEAN CORPUSCULAR HGB CONC 33 g/dl (31.0-36.0); MEAN CORPUSCULAR VOLUME 87 fL (80-96); MONOCYTES # (AUTO) 1.1 K/uL (0.1-1.30); MONOCYTES % (AUTO) 9.7 % (2.0-12.0); NEUTROPHILS # (AUTO) 7.7 K/uL (1.8-8.9); NEUTROPHILS % (AUTO) 71.1 % (43.0-81.0); PLATELET COUNT (AUTO) 381 K/uL (150-450); RED BLOOD CELL COUNT(AUTO) 5.23 MIL/uL (4.5-6.0); WHITE BLOOD COUNT (AUTO) 10.9 K/uL (4.3-11.0)
[2022-01-14 15:31] LABS: ALKALINE PHOSPHATASE 89 U/L (46-116); ASPARTATE AMINOTRANSFERASE 29 U/L (15-37); BILIRUBIN,DIRECT 0.1 mg/dL (0.0-0.2); BILIRUBIN,TOTAL 0.5 mg/dL (0.2-1.0); CALCIUM, SERUM 9.7 mg/dL (8.5-10.1); CARBON DIOXIDE 32 mmol/L (21-32); CHLORIDE 101 mmol/L (98-107); CREATININE 1.3 mg/dL (0.6-1.3); GLUCOSE 143 mg/dL (74-106); POTASSIUM 3.8 mmol/L (3.5-5.1); SODIUM SERUM 140 mmol/L (136-145); UREA NITROGEN, BLOOD 27 mg/dL (7-18)
[2022-01-14 15:32] LABS: ALANINE AMINOTRANSFERASE 41 U/L (12-78); ALBUMIN 4.9 g/dL (3.4-5.0); ALCOHOL, BLOOD < 3 mg/dL (0-0); TOTAL PROTEIN, SERUM 9.5 g/dL (6.4-8.2)
[2022-01-14 15:38] LABS: ACETAMINOPHEN < 10 ug/ml (10-30)
--- NOTE | 2022-01-14 16:30 | NUR ---
CLINICALS FAXED TO [facility].
--- NOTE | 2022-01-14 18:01 | NUR ---
ACCEPTED AT [facility] [phone] BARNES
--- NOTE | 2022-01-14 19:03 | NUR ---
REPORT GIVEN TO SALUD KRISHNAN FOR TRANSFER
--- NOTE | 2022-01-14 19:20 | NUR ---
TRANSPORTED TO [facility] IN STABLE CONDITION.
== END 2022-01-14 19:20 ==
LOC: ER 13:47
DX: R45.851 Suicidal ideations (principal); F15.10 Other stimulant abuse, uncomplicated; Z20.822 Contact with and (suspected) exposure to COVID-19; F31.9 Bipolar disorder, unspecified; F20.9 Schizophrenia, unspecified
CPT/HCPCS: 99285; 85025; 80048; 80076; 81001; 36415; 87426; 80143; 80320; 80307; C9803; G0480

== ENCOUNTER 2022-02-19 13:36 | Emergency (ER) | payer MEDICAID ==
[~2022-02-19] VITALS: Ht 182.9 cm; Wt 104.3 kg
--- NOTE | 2022-02-19 13:45 | NUR ---
BIBS W/ VERBALIZATION OF FEELING SUICIDAL, REQUESTING VOLUNTARY ADMISSION TO [facility]. TO ER BED 18. PT CHANGED INTO GOWN AND SECURITY CALLED FOR WANDING
--- NOTE | 2022-02-19 13:51 | NUR ---
COVID SWAB AND URINE SAMPLE OBTAINED
--- NOTE | 2022-02-19 14:06 | NUR ---
[facility] AT BEDSIDE FOR BLOOD DRAW
[2022-02-19 14:14] LABS: BILIRUBIN,URINE NEGATIVE (NEGATIVE); COLOR,URINE YELLOW (YELLOW); LEUKOCYTE ESTERASE ,URINE NEGATIVE (NEGATIVE); NITRITE, URINE NEGATIVE (NEGATIVE); PH,URINE 7.5 (5.0-8.0); PROTEIN,URINE NEGATIVE (NEGATIVE); UGLUCOSE NEGATIVE (NEGATIVE); UROBILINOGEN,URINE 0.2 EU/dL (0.2)
[2022-02-19 14:23] LABS: BASOPHILS % (AUTO) 0.5 % (0.0-2.0); EOSINOPHILS % (AUTO) 3.2 % (0.0-6.0); HEMATOCRIT 46 % (39-51); HEMOGLOBIN 15.3 g/dL (13.5-17.5); LYMPHOCYTES # (AUTO) 2.2 K/uL (0.8-4.8); LYMPHOCYTES % (AUTO) 24.5 % (20.0-44.0); MEAN CORPUSCULAR HGB CONC 33 g/dl (31.0-36.0); MEAN CORPUSCULAR VOLUME 87 fL (80-96); MONOCYTES # (AUTO) 0.6 K/uL (0.1-1.30); MONOCYTES % (AUTO) 7.3 % (2.0-12.0); NEUTROPHILS # (AUTO) 5.7 K/uL (1.8-8.9); NEUTROPHILS % (AUTO) 64.5 % (43.0-81.0); PLATELET COUNT (AUTO) 300 K/uL (150-450); WHITE BLOOD COUNT (AUTO) 8.8 K/uL (4.3-11.0)
[2022-02-19 14:38] LABS: CALCIUM, SERUM 9.6 mg/dL (8.5-10.1); CARBON DIOXIDE 30 mmol/L (21-32); CHLORIDE 101 mmol/L (98-107); GLUCOSE 119 mg/dL (74-106); POTASSIUM 4.5 mmol/L (3.5-5.1); SODIUM SERUM 140 mmol/L (136-145); UREA NITROGEN, BLOOD 13 mg/dL (7-18)
[2022-02-19 14:44] LABS: ALANINE AMINOTRANSFERASE 33 U/L (12-78); ALBUMIN 4.5 g/dL (3.4-5.0); ALCOHOL, BLOOD < 3 mg/dL (0-0); ALKALINE PHOSPHATASE 77 U/L (46-116); ASPARTATE AMINOTRANSFERASE 20 U/L (15-37); BILIRUBIN,DIRECT 0.1 mg/dL (0.0-0.2); BILIRUBIN,TOTAL 0.4 mg/dL (0.2-1.0); TOTAL PROTEIN, SERUM 8.5 g/dL (6.4-8.2)
[2022-02-19 14:45] LABS: BACTERIA,URINE Few /HPF (None Seen); RBC,URINE 0-2 /HPF (0-2); SQUAMOUS EPITHELIAL CELL,UR Few /HPF (None Seen); URINE AMORPHOUS PHOSPHATES Few /HPF (None Seen); WBC,URINE 0-2 /HPF (0-3)
[2022-02-19 14:52] LABS: ACETAMINOPHEN < 10 ug/ml (10-30)
--- NOTE | 2022-02-19 16:22 | NUR ---
[facility] faxed clinicals to [facility] TEL:[phone] fax:[phone] for for voluntary psychiatric treatment at [facility] [[facility] [place] [address] FAX:[phone]].
--- NOTE | 2022-02-19 16:31 | NUR ---
accepted to [facility] under dr. gutierrez call [phone] for report. coach driver will collect pt.
--- NOTE | 2022-02-19 16:36 | NUR ---
patient accepted at [facility] ETA 15-20 mins
[2022-02-19 18:39] VITALS: BP 128/88
--- NOTE | 2022-02-19 18:40 | NUR ---
patient picked up by hany catalan laborer driver in no distress.
== END 2022-02-19 18:40 ==
LOC: ER 13:38
DX: R45.851 Suicidal ideations (principal); F31.9 Bipolar disorder, unspecified; F20.9 Schizophrenia, unspecified; Z20.822 Contact with and (suspected) exposure to COVID-19; Z88.8 Allergy status to other drugs, medicaments and biological substances
CPT/HCPCS: 99285; 85025; 80048; 80076; 81001; 36415; 87426; 80143; 80320; 80307; C9803; G0480

== ENCOUNTER 2023-05-04 11:31 | Emergency (ER) | payer MEDICAID ==
[~2023-05-04] VITALS: Ht 180.3 cm; Wt 122.5 kg
[2023-05-04] MEDS ORDERED: LORAZEPAM 1 MG TABLET ONE (11:57)
[2023-05-04] MEDS ORDERED: LORAZEPAM 1 MG TABLET PO ONE (12:00)
[2023-05-04 12:01] LABS: BASOPHILS # (AUTO) 0.1 K/uL (0.0-0.2); BASOPHILS % (AUTO) 0.6 % (0.0-2.0); EOSINOPHILS # (AUTO) 0.1 K/uL (0.0-0.7); HEMATOCRIT 48 % (39-51); HEMOGLOBIN 16.2 g/dL (13.5-17.5); LYMPHOCYTES # (AUTO) 2.6 K/uL (0.8-4.8); LYMPHOCYTES % (AUTO) 25.3 % (20.0-44.0); MEAN CORPUSCULAR HEMOGLOBIN 29 PG (26.0-33.0); MEAN CORPUSCULAR HGB CONC 34 g/dl (31.0-36.0); MEAN CORPUSCULAR VOLUME 87 fL (80-96); MONOCYTES # (AUTO) 0.7 K/uL (0.1-1.30); MONOCYTES % (AUTO) 6.8 % (2.0-12.0); NEUTROPHILS # (AUTO) 6.8 K/uL (1.8-8.9); NEUTROPHILS % (AUTO) 66.3 % (43.0-81.0); PLATELET COUNT (AUTO) 273 K/uL (150-450); RED BLOOD CELL COUNT(AUTO) 5.53 MIL/uL (4.5-6.0); RED CELL DISTRIBUTION WIDTH 14.3 % (11.5-15.0); WHITE BLOOD COUNT (AUTO) 10.2 K/uL (4.3-11.0)
[2023-05-04 12:02] LABS: APPEARANCE,URINE CLEAR (CLEAR); BILIRUBIN,URINE NEGATIVE (NEGATIVE); BLOOD, URINE NEGATIVE Ery/uL (NEGATIVE); COLOR,URINE YELLOW (YELLOW); KETONES,URINE NEGATIVE (NEGATIVE); LEUKOCYTE ESTERASE ,URINE NEGATIVE (NEGATIVE); NITRITE, URINE POSITIVE (NEGATIVE); PROTEIN,URINE NEGATIVE (NEGATIVE); UGLUCOSE NEGATIVE (NEGATIVE); UROBILINOGEN,URINE 0.2 EU/dL (0.2)
[2023-05-04 12:08] LABS: ADD URINE CULTURE YES; BACTERIA,URINE Few /HPF (None Seen); RBC,URINE 0-2 /HPF (0-2); SQUAMOUS EPITHELIAL CELL,UR Rare /HPF (None Seen); WBC,URINE 0-2 /HPF (0-3)
[2023-05-04 12:18] LABS: BARBITURATE, URINE NEGATIVE (NEGATIVE); BENZODIAZEPINE, URINE NEGATIVE (NEGATIVE); CANNABINOID, URINE NEGATIVE (NEGATIVE); COCCAINE, URINE NEGATIVE (NEGATIVE); OPIATE, URINE NEGATIVE (NEGATIVE); PHENCYCLIDINE SCREEN,URINE NEGATIVE (NEGATIVE)
[2023-05-04 12:22] LABS: ALANINE AMINOTRANSFERASE 93 U/L (12-78); ALBUMIN 4.5 g/dL (3.4-5.0); ALCOHOL, BLOOD < 3 mg/dL (0-10); ALKALINE PHOSPHATASE 116 U/L (46-116); ASPARTATE AMINOTRANSFERASE 76 U/L (15-37); BILIRUBIN,DIRECT 0.1 mg/dL (0.0-0.2); BILIRUBIN,TOTAL 0.4 mg/dL (0.2-1.0); CALCIUM, SERUM 9.2 mg/dL (8.5-10.1); CARBON DIOXIDE 27 mmol/L (21-32); CHLORIDE 100 mmol/L (98-107); GLUCOSE 168 mg/dL (74-106); SODIUM SERUM 137 mmol/L (136-145); TOTAL PROTEIN, SERUM 8.7 g/dL (6.4-8.2); UREA NITROGEN, BLOOD 11 mg/dL (7-18)
[2023-05-04 12:35] LABS: ACETAMINOPHEN <10 ug/ml (10-30); SALICYLATE 2.2 mg/dL (2.8-20.0)
[2023-05-04 12:35] LABS: AMPHETAMINE, URINE POSITIVE (NEGATIVE)
[2023-05-04 15:17] VITALS: BP 120/70; TEMP 98.6; O2SAT 98
== END 2023-05-04 15:18 ==
LOC: ER 11:34
DX: R45.851 Suicidal ideations (principal); F15.10 Other stimulant abuse, uncomplicated; F20.9 Schizophrenia, unspecified; F17.200 Nicotine dependence, unspecified, uncomplicated; Z20.822 Contact with and (suspected) exposure to COVID-19; Z79.899 Other long term (current) drug therapy; Z60.2 Problems related to living alone; Z88.1 Allergy status to other antibiotic agents
CPT/HCPCS: 99285; 85025; 80048; 87086; 80076; 81001; 36415; 87426; 80143; 80320; 80307; C9803; G0480